=== PATIENT | female | born 1930 | race Caucasian/White ===

== ENCOUNTER 2016-04-25 18:52 | Emergency (ER) | payer MEDICARE, BC ==
--- NOTE | 2016-04-25 19:54 | UC ---
General HPI - HPI Summary HPI Summary: food stuck behind tongue. She was eating a ham sandwich tonight when she felt a long string of fat get stuck in back of throat. She reached in and grabbed what she could, it was painful, and she pulled out some fat. Still feels like some is in there behind tongue. Voice is normal. Able to swallow saliva and fluids without difficulty. No coughing or wheezing. No pain. - History of Current Complaint Chief Complaint: UCForeignBody Stated Complaint: FOOD STUCK IN THROAT Time Seen by Provider: 04/25/16 19:17 Hx Obtained From: Patient Onset/Duration: Sudden Onset, Lasting Hours - 2 Timing: Constant Onset Severity: Mild Current Severity: Mild Associated Signs & Symptoms: Negative: Vomiting - Allergy/Home Medications Allergies/Adverse Reactions: Allergies Allergy/AdvReac Type Severity Reaction Status Date / Time No Known Allergies Allergy Verified 04/25/16 19:28 Home Medications: Home Medications NK [No Home Medications Reported] 04/25/16 [History Confirmed 04/25/16] PMH/Surg Hx/FS Hx/Imm Hx Previously Healthy: Yes Cancer History Of: Reports: Breast Cancer - 2008 - Surgical History Surgical History: Yes Surgery Procedure, Year, and Place: BREAST CANCER, LEFT LUMPECTOMY - Family History Known Family History: Negative: Respiratory Disease - Social History Occupation: Retired Lives: With Family Alcohol Use: None Substance Use Type: None Smoking Status (MU): Never Smoked Tobacco Review of Systems Constitutional: Negative Skin: Negative Eyes: Negative ENT: Other - sensation of food particle in left vallecular area Respiratory: Negative Cardiovascular: Negative Gastrointestinal: Negative Genitourinary: Negative Motor: Negative Neurovascular: Negative Musculoskeletal: Negative Neurological: Negative Psychological: Negative All Other Systems Reviewed And Are Negative: Yes Physical Exam Triage Information Reviewed: Yes Appearance: Well-Appearing, No Pain Distress, Well-Nourished Vital Signs: Initial Vital Signs Temp 98.5 F 04/25/16 19:23 Pulse 77 04/25/16 19:23 Resp 18 04/25/16 19:23 BP 169/85 04/25/16 19:23 Pulse Ox 97 04/25/16 19:23 Vital Signs Reviewed: Yes Eye Exam: Normal ENT: Positive: Pharynx normal, Other: - I can't see any foreign object when I look directly with light and tongue blade. She is able to speak normally, has no resp distress, is swallowing her saliva. Able to eat crackers and drink juice. As time went on, she felt like the object was less noticeable. Still there, but not as irritating.. Negative: Nasal drainage, Tonsillar swelling, Tonsillar exudate, Trismus, Muffled/hoarse voice Neck exam: Normal Neck: Positive: Supple, Nontender, No Lymphadenopathy Respiratory Exam: Normal Respiratory: Positive: Lungs clear Cardiovascular Exam: Normal Musculoskeletal Exam: Normal Neurological Exam: Normal Psychological Exam: Normal Skin Exam: Normal Course/Dx - Course Course Of Treatment: will try to drink/eat various textures, gargle. if still irritated in AM, will call Dr. Araujo. if worsening tonight, to ER - Differential Dx - Multi-Symptom Provider Diagnoses: food in vallecula Discharge - Discharge Plan Condition: Stable Disposition: HOME Patient Education Materials: Dysphagia (ED) Referrals: Horace Araujo MD [Medical Doctor] - No Primary Care Phys,NOPCP [Primary Care Provider] - Additional Instructions: You probably have a bit of food stuck in the vallecula, which is a pocket of tissue behind the tongue. This usually will work itself out. Gargling, eating bananas or bread or other textured foods may help. If it is getting worse, particularly if you can't swallow your saliva, your voice is hoarse, or it is making you choke, then you should go immediately to the ER. If you wake up tomorrow and it still feels like something is stuck in there, call the ENT doctor. They can look down with a lighted tube and examine the vallecula directly and can remove anything stuck down there. Sometimes there is nothing stuck, but there is a scratch or tear the feels like an object. That will heal itself.
[2016-04-25 20:10] VITALS: BP 131/74
== END 2016-04-25 20:00 | disposition home or self-care (01) ==
LOC: UCEAST 18:52
DX: T18.120A Food in esophagus causing compression of trachea, initial encounter (principal); X58.XXXA Exposure to other specified factors, initial encounter; Y93.89 Activity, other specified; Y92.9 Unspecified place or not applicable
CPT/HCPCS: 99212; G0463

== ENCOUNTER 2017-04-14 10:14 | Day surgery (SDC) | payer MEDICARE, BC ==
[~2017-04-14 10:14] MED LIST: Acetaminophen TAB* 325 MG PO PRN; Buffered Lidocaine 0.9% SYRIN* 5 ML/SYR SYRINGE INTRADERM ONE
[2017-04-14] MEDS ORDERED: Midazolam* 1 MG/ML 2 ML VIAL (2 MG) ONE (11:27)
[2017-04-14] MEDS ORDERED: Lidocaine 1% MPF* 2 ML VIAL ONE (11:45)
[2017-04-14] MEDS ORDERED: acetaZOLAMIDE TAB* 250 MG ONE (11:45)
[2017-04-14] MEDS ORDERED: Neomycin/Polymy/Dex OPHTH.OIN* 3.5 GM ONE (11:45)
[2017-04-14] MEDS ORDERED: Tropicamide 1% OPTH.SOL* BTL ONE (11:45)
[2017-04-14] MEDS ORDERED: Povidone Iodine 5% OPTH* 30 ML BTL ONE (11:45)
[2017-04-14] MEDS ORDERED: Ketorolac 0.5% OPHTH (NF) 0.5 % 5 ML BTL ONE (11:45)
[2017-04-14] MEDS ORDERED: Phenylephrine 2.5% OPTH.SOL* 2 ML BTL ONE (11:45)
[2017-04-14] MEDS ORDERED: Tetracaine 0.5% OPTH.SOL 4 ML* 1 DROP BTL ONE (11:45)
[2017-04-14] MEDS ORDERED: Cyclopentolate 1% OPTH.SOL* 2 ML BTL ONE (11:45)
[2017-04-14] MEDS ORDERED: fentaNYL* 50 MCG/ML 2 ML VIAL (100 MCG VIAL) ONE (12:05)
[2017-04-14 12:36] VITALS: BP 142/83
--- NOTE | 2017-04-15 11:25 | OP ---
DATE OF OPERATION: 04/14/17 - [facility] DATE OF : 32 SURGEON: Poncho Ray MD ANESTHESIA: Monitored anesthesia care. PRE-OP DIAGNOSIS: Cataract, right eye. POST-OP DIAGNOSIS: Cataract, right eye. OPERATIVE PROCEDURE: Extracapsular cataract extraction of the right eye with intraocular lens implant. IMPLANTS: SN60WF 23.0 diopter lens to the right eye. COMPLICATIONS: None. DESCRIPTION OF PROCEDURE: The patient was given phenylephrine 2.5% and cyclopentolate 1% eyedrops to the operative eye in the preoperative area. The patient was brought to the operating room where a time-out was taken to identify the correct patient, site and side of surgery. The patient's right eye was prepped and draped in usual sterile fashion with 5% Betadine. A second timeout was taken to verify the correct patient, site and side of surgery, and correct lens selection. A lid speculum was placed in the right eye. A 1-mm paracentesis blade was used to make a clear corneal incision in the superotemporal position. Preservative-free 1% lidocaine was injected into the anterior chamber. DisCoVisc was then injected into the anterior chamber. A 2.75 -mm keratome blade was used to make a triplanar incision in the inferotemporal position. A cystotome initiated a capsulorrhexis, which was completed with Utrata forceps in a continuous and curvilinear manner. Hydrodissection of the lens was performed with BSS on a cannula. The lens could be spun in the capsular bag. The phacoemulsification handpiece was used with divide-and- conquer technique to remove the nucleus in its entirety with 23.10 CDE. The I/ A handpiece then removed the residual cortical lens material. DisCoVisc was injected to inflate the capsular bag. The planned SN60WF 23.0 diopter lens was then injected in the capsular bag. The residual DisCoVisc was removed from the eye with the I/A handpiece. The corneal incisions were hydrated and no leaks occurred at physiologic pressure around 20 mmHg per palpation. The lid speculum was removed and drapes removed. Maxitrol ointment was placed to the surface of the operative eye. An adhesive patch and shield was placed on the operative eye. The patient was taken to the postoperative area in stable condition. [id number] #: [id number] MTDD
== END 2017-04-14 12:40 | disposition home or self-care (01) ==
LOC: OREAST 10:14
PROVIDERS: ATTEND Student in an Organized Health Care Education/Training Program
DX: H25.11 Age-related nuclear cataract, right eye (principal); H35.3111 Nonexudative age-related macular degeneration, right eye, early dry stage; H35.3122 Nonexudative age-related macular degeneration, left eye, intermediate dry stage; Z85.3 Personal history of malignant neoplasm of breast
CPT/HCPCS: A9270-GY; J2250; J3010; V2632

== ENCOUNTER → 2017-04-21 07:06 | Day surgery (SDC) | payer MEDICARE, BC ==
[~2017-04-21 07:06] MED LIST changes: +Cyclopentolate 1% OPTH.SOL* 2 ML BTL ONE; +Ketorolac 0.5% OPHTH (NF) 0.5 % 5 ML BTL ONE; +Lidocaine 1% MPF* 2 ML VIAL ONE; +Midazolam* 1 MG/ML 2 ML VIAL (2 MG) ONE; +Neomycin/Polymy/Dex OPHTH.OIN* 3.5 GM ONE; +Phenylephrine 2.5% OPTH.SOL* 2 ML BTL ONE; +Povidone Iodine 5% OPTH* 30 ML BTL ONE; +Tetracaine 0.5% OPTH.SOL 4 ML* 1 DROP BTL ONE; +Tropicamide 1% OPTH.SOL* BTL ONE; +acetaZOLAMIDE TAB* 250 MG ONE
[2017-04-21 08:59] VITALS: BP 131/82
--- NOTE | 2017-04-21 21:15 | OP ---
DATE OF OPERATION: 04/21/17 - [facility] DATE OF : 32 SURGEON: Poncho Ray MD ANESTHESIA: Monitored anesthesia care. PRE-OP DIAGNOSIS: Cataract, left eye. POST-OP DIAGNOSIS: Cataract, left eye. OPERATIVE PROCEDURE: Extracapsular cataract extraction of the left eye with intraocular lens implant. IMPLANTS: SN60WF 24.0 diopter lens to the left eye. COMPLICATIONS: None. DESCRIPTION OF PROCEDURE: The patient was given phenylephrine 2.5% and cyclopentolate 1% eye drops to the operative eye in the preoperative area. The patient was brought to the operating room where a time-out was taken to identify the correct patient, site and side of surgery. The patient's left eye was prepped and draped in the usual sterile fashion with 5% Betadine. A second time-out was taken to verify the correct patient, site and side of surgery, and correct lens selection. A lid speculum was placed to the left eye. A 1-mm paracentesis blade was used to make a clear corneal incision in the inferotemporal position. Preservative-free 1% lidocaine was injected into the anterior chamber. DisCoVisc was then injected into the anterior chamber. A 2.75 mm keratome blade was used to make a triplanar incision at the superotemporal position. A cystotome initiated a capsulorrhexis which was completed with Utrata forceps in a continuous and curvilinear manner. Hydrodissection of the lens was performed with BSS on a cannula. The lens could be spun in the capsular bag. The phacoemulsification handpiece was used with a [id number]-[id number]-gkmammi technique to remove the nucleus in its entirety with 19.69 CDE. The I/A handpiece then removed the residual cortical lens material. DisCoVisc was injected to inflate the capsular bag. The planned SN60WF 24.0 diopter lens was injected into the capsular bag. The residual DisCoVisc was removed from the eye with the I/A handpiece. The corneal incisions were hydrated and no leaks occurred at physiologic pressure around 20 mmHg per palpation. The lid speculum was removed and drapes removed. Maxitrol ointment was placed to the surface of the operative eye. An adhesive patch and shield was then placed on the operative eye. The patient was taken to the postoperative area in stable condition. [id number] #: [id number] MTDD
== END | disposition home or self-care (01) ==
LOC: OREAST 07:06
PROVIDERS: ATTEND Student in an Organized Health Care Education/Training Program
DX: H25.12 Age-related nuclear cataract, left eye (principal); H35.3122 Nonexudative age-related macular degeneration, left eye, intermediate dry stage; H35.3111 Nonexudative age-related macular degeneration, right eye, early dry stage; Z85.3 Personal history of malignant neoplasm of breast; R05 Cough; R42 Dizziness and giddiness; F40.240 Claustrophobia
CPT/HCPCS: A9270-GY; J2250; V2632

== ENCOUNTER 2017-04-22 03:55 | Emergency (ER) | payer MEDICARE, BC ==
--- NOTE | 2017-04-22 04:36 | ED ---
Michela Grande Thomas, scribed for Brenda Maher MD on 04/22/17 at 0433 . Abdominal Pain/Female - HPI Summary HPI Summary: The patient is an 86 year old female brought in by ambulance complaining of an episode of abdominal pain that began today at 02:30 and spontaneously relieved en route to [facility]. She was nauseous during this episode. The pain is concentrated to the right side and lower abdomen. She denies pain in the ED. Her last BM was yesterday morning and it was normal. - History of Current Complaint Chief Complaint: EDAbdPain Stated Complaint: ABD PAIN Time Seen by Provider: 04/22/17 03:55 Hx Obtained From: Patient Onset/Duration: Lasting Hours, Resolved Timing: Constant Severity Initially: Moderate Severity Currently: None Pain Intensity: 0 Pain Scale Used: 0-10 Numeric Location: Other - Right side, lower Aggravating Factor(s): Nothing Alleviating Factor(s): Spontaneous Resolution Associated Signs and Symptoms: Positive: Nausea. Negative: Fever Allergies/Adverse Reactions: Allergies Allergy/AdvReac Type Severity Reaction Status Date / Time No Known Allergies Allergy Verified 04/21/17 07:12 PMH/Surg Hx/FS Hx/Imm Hx Cardiovascular History: Denies: Other Cardiovascular Problems/Disorders Respiratory History: Denies: Other Respiratory Problems/Disorders GI History: Denies: Other GI Disorders History: Reports: Other Problems/Disorders - bladder leakage Musculoskeletal History: Reports: Hx Arthritis - bilateral knees, Hx Bursitis - right shoulder pain Denies: Other Musculoskeletal History Sensory History: Reports: Hx Cataracts - Bilateral, Hx Contacts or Glasses - Glasses Denies: Hx Hearing Aid Opthamlomology History: Reports: Hx Cataracts - Bilateral, Hx Contacts or Glasses - Glasses Neurological History: Reports: Other Neuro Impairments/Disorders - vertigo- gets frequently - Cancer History Hx Chemotherapy: No - Radiation therapy Hx Radiation Therapy: Yes - Surgical History Surgery Procedure, Year, and Place: BREAST CANCER, LEFT LUMPECTOMY 2009. Teeth extraction Hx Anesthesia Reactions: No Infectious Disease History: No Infectious Disease History: Denies: Traveled Outside the [place] in Last 30 Days - Family History Known Family History: Negative: Respiratory Disease - Social History Alcohol Use: None Substance Use Type: Reports: None Smoking Status (MU): Never Smoked Tobacco Review of Systems Negative: Fever Positive: Abdominal Pain, Nausea All Other Systems Reviewed And Are Negative: Yes Physical Exam - Summary Physical Exam Summary: VITAL SIGNS: Reviewed. GENERAL: Patient is a well-developed and nourished MALE who is lying comfortable in the stretcher. Patient is not in any acute respiratory distress. HEAD AND FACE: No signs of trauma. No ecchymosis, hematomas or skull depressions. No sinus tenderness. EYES: PERRLA, EOMI x 2, No injected conjunctiva, no nystagmus. EARS: Hearing grossly intact. Ear canals and tympanic membranes are within normal limits. MOUTH: Oropharynx within normal limits. NECK: Supple, trachea is midline, no adenopathy, no JVD, no carotid bruit, no c- spine tenderness, neck with full ROM. CHEST: Symmetric, no tenderness at palpation LUNGS: Clear to auscultation bilaterally. No wheezing or crackles. CVS: Regular rate and rhythm, S1 and S2 present, no murmurs or gallops appreciated. ABDOMEN: Soft, non-tender. Mild distention. No rebound no guarding, and no masses palpated. Bowel sounds are normal. EXTREMITIES: FROM in all major joints, no edema, no cyanosis or clubbing. NEURO: Alert and oriented x 3. No acute neurological deficits. Speech is normal and follows commands. SKIN: Dry and warm Triage Information Reviewed: Yes Vital Signs On Initial Exam: Initial Vitals Temp Pulse Resp BP Pulse Ox 97.8 F 86 16 137/69 97 04/22/17 04:11 04/22/17 04:11 04/22/17 04:11 04/22/17 04:11 04/22/17 04:11 Vital Signs Reviewed: Yes Diagnostics - Vital Signs Vital Signs Temp Pulse Resp BP Pulse Ox 04/22/17 04:11 97.8 F 86 16 137/69 97 - Laboratory Lab Statement: Any lab studies that have been ordered have been reviewed, and results considered in the medical decision making process. Abdominal Pain Fem Course/Dx - Course Course Of Treatment: The patient is an 86 year old female brought in by ambulance complaining of an episode of abdominal pain that began today at 02:30 and spontaneously relieved en route to [facility]. She has mild distention. She is diagnosed with abdominal pain and will follow up with primary care. - Diagnoses Provider Diagnoses: Abdominal pain Discharge - Discharge Plan Condition: Stable Disposition: HOME Patient Education Materials: Abdominal Pain (ED) Referrals: Bozena Lackey MD [Primary Care Provider] - 3 Days Additional Instructions: Follow up with your primary care physician in three days. Return to the emergency department for any new or worsening symptoms. The documentation as recorded by the Michela russo Thomas accurately reflects the service I personally performed and the decisions made by me, Brenda Maher MD.
[2017-04-22 04:37] VITALS: BP 137/71
--- OUTSIDE RECORDS SUMMARY | 2017-04-22 04:59 | XMS REPORT ---
:1930 External Reference #:[id number] Author Organization [facility] Address [address] [place] [address] Phone [phone] Care Team Providers Name Role Phone Bozena Lackey Care Team Information Radio Script Writer Unavailable Bozena Lackey Primary Care Physician Unavailable Payers Type Date Identification Numbers Payment Provider Subscriber Medicare Primary Effective: Policy Number: Medicare Yefri Rice 2000 [id number] PayID: [id number] [address] [place] [address] Medigap Part B Effective: 2004 Policy Number: [place] Mdahuri Rice [id number] Health Care PayID: [id number] [address] [place] [address] Problems Date Description Provider Status Onset: 05/10/2011 Malignant neoplasm of female breast Nikole Everett M.D. Active Onset: 05/10/2011 Cellulitis Nikole Everett M.D. Active Onset: 04/24/2011 Peripheral vertigo Jamil Leonardo M.D. Active Social History Type Date Description Comments Marital Status Patient is Living Situation Patient lives alone. [facility] Cigarette Use Never Smoked Cigarettes ETOH Use Denies alcohol use Smoking Patient has never smoked Seat Belt/Car Seat Always uses a seat belt Allergies, Adverse Reactions, Alerts Date Description Reaction Status Severity Comments 04/24/2011 NKDA active Medications Medication Date Status Form Strength Qnty SIG Indications Ordering Provider No Active 07/10/ Active Unknown Medications 2017 Meclizine HCL 10/27/ Hx Tablets 12.5mg 30tabs take 1-2 tid 386.10 Lori 2013 - prn for Christy, 07/09/ dizziness Afnp-C 2017 Cephalexin 05/12/ Hx Tablets 500mg 28tabs 1 po qid for 682.8 Nikole M. 2012 - 7 days LaFace, 10/27/ M.D. 2013 Antivert 04/24/ Hx Tablets 12.5mg 30tabs 1 po tid prn Jamil Huynh 2012 - for vertigo Breiman, 05/09/ M.D. 2012 Amoxicillin 07/02/ Hx Capsules 500mg 21caps 1 po tid for 382.9 Nikole Schumacher 2011 - 7 days LaFace, 04/24/ M.D. 2012 Ciprodex 07/02/ Hx Suspension 0.3-0.1% 7.500m 4 gtts bid 380.22 Nikole Schumacher 2011 - l for 7 days, LaFace, 04/24/ left ear M.D. 2011 Antivert 10/22/ Hx Tablets 12.5mg 30tabs 1-2 PO tid Mery 2007 - prn [place]ilsdorf, 11/01/ Dizziness Afnp-C 2006 Biaxin 06/15/ Hx Tablets 500mg 20tabs 1 PO bid X10 Lori 2005 - Days Christy, 06/25/ Afnp-C 2005 Biaxin 07/27/ Hx Tablets 500mg 20tabs 1 po bid Andrew TJonel 2005 - Midura, 10/22/ M.D. 2007 Biaxin XL 03/17/ Hx 500mg 20unit Je 2005 - s Bipin, 03/26/ HEAT CURER 2005 One P.O. bid For Ten Days Albuterol 03/17/ Hx 1units 2 puffs qid Je Inhaler 2005 - prn Bipin, 07/27/ HEAT CURER 2005 Robitussin ac 03/09/ Hx 4Oz 1-2 tsp po Andrew T. 2004 - q4h prn Israel, 10/22/ cough M.D. 2007 Handicap 12/21/ Hx needed due Freda Parking 2003 - to: ankle Bala, Permit 03/09/ sprain HEAT CURER 2003 [id number] Biaxin 01/06/ Hx Tabs 500mg 20tabs 1 PO bid Phoenix AJonel 2001 - Darlow, 01/16/ M.D. 2000 Augmentin 12/24/ Hx 500mg 20unit 1 PO bid Phoenix AJonel 2001 - s Darlow, 01/03/ M.D. 2000 Duratuss GP 12/24/ Hx 20unit 1 PO Q 12 HR Phoenix A. 2000 - s prn Head Darrosa, 01/03/ Congestion MZack 2000 Tequin 04/10/ Hx 400mg 10unit 1 PO qd Andrew Avila 2000 - s Israel, 12/24/ Vandana 2000 Duratuss 04/03/ Hx 8units 1 PO bid prn Freda 2001 - Head Bala, 04/08/ Congestion HEAT CURER 2000 Vioxx 04/03/ Hx 25mg 12unit 1 PO qd Freda 2000 - s Bala, 04/10/ HEAT CURER 2000 Zithromax 03/29/ Hx 250mg 6units 2 Tabs Day 1 Mery 2000 - [place]f, 04/03/ Afnp-C 2000 1 Tab qd Days 2 Thru 5 Femara / Hx Tablets 2.5mg 30tabs take one Aron, 0000 - tablet by Doron 07/09/ mouth one 2016 time daily Augmentin / Hx Tablets 20tabs 1 po qd Unknown 0000 - 2011 Immunizations CPT Code Status Date Vaccine Lot # [id number] Given 12/22/2009 DO Not Use Split Influenza Virus Vaccine Vital Signs Date Vital Result Comment 03/26/2017 BP Systolic 132 mmHg BP Diastolic 82 mmHg Heart Rate 84 /min Body Temperature 98.4 F Respiratory Rate 16 /min Height 66 inches 5'6" Weight 157.00 lb BMI (Body Mass Index) 25.3 kg/m2 10/09/2016 BP Systolic 124 mmHg BP Diastolic 62 mmHg Heart Rate 90 /min Body Temperature 97.9 F Height 66 inches 5'6" Weight 157.38 lb BMI (Body Mass Index) 25.4 kg/m2 09/11/2016 BP Systolic 122 mmHg BP Diastolic 70 mmHg Heart Rate 78 /min Body Temperature 98.4 F Height 66 inches 5'6" Weight 158.50 lb BMI (Body Mass Index) 25.6 kg/m2 07/10/2016 BP Systolic 132 mmHg BP Diastolic 70 mmHg Heart Rate 76 /min Body Temperature 98.2 F Height 66 inches 5'6" Weight 163.00 lb BMI (Body Mass Index) 26.3 kg/m2 10/27/2012 BP Systolic 122 mmHg BP Diastolic 60 mmHg Heart Rate 76 /min Body Temperature 98.9 F Height 66 inches 5'6" Weight 156.00 lb BMI (Body Mass Index) 25.2 kg/m2 05/16/2011 BP Systolic 116 mmHg BP Diastolic 60 mmHg Heart Rate 72 /min Body Temperature 98.7 F Height 66 inches 5'6" Weight 177.00 lb BMI (Body Mass Index) 28.6 kg/m2 05/13/2011 BP Systolic 100 mmHg BP Diastolic 68 mmHg Heart Rate 84 /min Body Temperature 98.1 F Height 66 inches 5'6" Weight 177.00 lb BMI (Body Mass Index) 28.6 kg/m2 05/10/2011 BP Systolic 122 mmHg BP Diastolic 62 mmHg Heart Rate 68 /min Body Temperature 97.6 F Height 66 inches 5'6" Weight 179.00 lb BMI (Body Mass Index) 28.9 kg/m2 04/24/2011 BP Systolic 138 mmHg BP Diastolic 72 mmHg Heart Rate 96 /min Height 66 inches 5'6" Weight 181.00 lb BMI (Body Mass Index) 29.2 kg/m2 07/02/2010 BP Systolic 124 mmHg BP Diastolic 70 mmHg Heart Rate 78 /min Body Temperature 98.0 F Respiratory Rate 20 /min Height 66 inches 5'6" Weight 182.00 lb BMI (Body Mass Index) 29.4 kg/m2 01/17/2010 BP Systolic 130 mmHg BP Diastolic 90 mmHg Heart Rate 72 /min Body Temperature 98.4 F Respiratory Rate 15 /min Height 66 inches 5'6" Weight 180.00 lb BMI (Body Mass Index) 29.0 kg/m2 02/24/2008 BP Systolic 110 mmHg BP Diastolic 60 mmHg Heart Rate 80 /min Body Temperature 97.9 F Weight 180.00 lb 10/22/2006 BP Systolic 126 mmHg BP Diastolic 84 mmHg Body Temperature 98.2 F 03/24/2006 BP Systolic 110 mmHg BP Diastolic 66 mmHg Heart Rate 84 /min Body Temperature 99.2 F Weight 187.00 lb 12/11/2005 BP Systolic 136 mmHg BP Diastolic 70 mmHg Heart Rate 72 /min Body Temperature 99.1 F Weight 191.00 lb 06/15/2005 Heart Rate 88 /min Body Temperature 98.4 F Weight 203.00 lb 07/27/2004 BP Systolic 112 mmHg BP Diastolic 74 mmHg Heart Rate 80 /min Body Temperature 97.0 F Weight 190.00 lb 03/26/2004 BP Systolic 148 mmHg BP Diastolic 90 mmHg Heart Rate 80 /min Body Temperature 97.6 F Weight 189.00 lb 03/17/2004 BP Systolic 124 mmHg BP Diastolic 64 mmHg Heart Rate 80 /min Body Temperature 99.0 F Weight 194.00 lb 03/09/2004 BP Systolic 130 mmHg BP Diastolic 80 mmHg Heart Rate 100 /min Body Temperature 100.8 F 12/01/2003 BP Systolic 138 mmHg BP Diastolic 80 mmHg Heart Rate 78 /min 12/24/2000 BP Systolic 120 mmHg BP Diastolic 80 mmHg Body Temperature 99.5 F Respiratory Rate 18 /min Weight 174.00 lb 04/10/2000 BP Systolic 124 mmHg BP Diastolic 82 mmHg Heart Rate 80 /min Body Temperature 97.6 F Weight 166.00 lb 04/03/2000 Body Temperature 97.7 F Weight 177.00 lb 03/29/2000 BP Systolic 118 mmHg BP Diastolic 64 mmHg Heart Rate 78 /min Body Temperature 98.3 F Weight 176.00 lb Results Test Date Test Result H/L Range Note CBC Auto Diff 02/19/2017 White Blood Count 5.8 10^3/uL 3.5-10.8 Red Blood Count 4.88 10^6/uL 4.0-5.4 Hemoglobin 14.1 g/dL 12.0-16.0 Hematocrit 43 % 35-47 Mean Corpuscular Volume 88 fL 80-97 Mean Corpuscular Hemoglobin 29 pg 27-31 Mean Corpuscular HGB Conc 33 g/dL 31-36 Red Cell Distribution Width 15 % 10.5-15 Platelet Count 252 10^3/uL 150-450 Mean Platelet Volume 8 um3 7.4-10.4 Abs Neutrophils 3.7 10^3/uL 1.5-7.7 Abs Lymphocytes 1.5 10^3/uL 1.0-4.8 Abs Monocytes 0.4 10^3/uL 0-0.8 Abs Eosinophils 0.1 10^3/uL 0-0.6 Abs Basophils 0.1 10^3/uL 0-0.2 Abs Nucleated RBC 0.01 10^3/uL Granulocyte % 62.6 % 38-83 Lymphocyte % 25.7 % 25-47 Monocyte % 7.4 % 1-9 Eosinophil % 1.8 % 0-6 Basophil % 2.5 % High 0-2 Nucleated Red Blood Cells % 0.1 Comp Metabolic Panel 02/19/2017 Sodium 138 mmol/L 133-145 Potassium 4.2 mmol/L 3.5-5.0 Chloride 104 mmol/L 101-111 Co2 Carbon Dioxide 31 mmol/L 22-32 Anion Gap 3 mmol/L 2-11 Glucose 74 mg/dL 70-100 Blood Urea Nitrogen 15 mg/dL 6-24 Creatinine 0.83 mg/dL 0.51-0.95 BUN/Creatinine Ratio 18.1 8-20 Calcium 10.0 mg/dL 8.6-10.3 Total Protein 6.7 g/dL 6.4-8.9 Albumin 4.0 g/dL 3.2-5.2 Globulin 2.7 g/dL 2-4 Albumin/Globulin Ratio 1.5 1-3 Total Bilirubin 0.50 mg/dL 0.2-1.0 Alkaline Phosphatase 76 U/L 34-104 Alt 12 U/L 7-52 Ast 17 U/L 13-39 Egfr Non- 65.3 >60 Egfr 84.0 >60 1 Laboratory test finding 02/19/2017 Vitamin D Total 37.9 ng/mL 20-50 25(Oh) Lyme AB/Western Blot 10/09/2016 Lyme IgG/IgM Ab <0.91 ISR 0.00-0.90 2 , 3 Reflex Lyme Disease Ab, Quant, IgM <0.80 index 0.00-0.79 2, 4 Ehrlichiosis Panel 10/09/2016 E. chaffeensis (HME) IgG Negative Neg:<1 :64 2 Titer E. chaffeensis (HME) IgM Titer Negative Neg:<1:20 2, 5 Hge IgG Titer Negative Neg:<1:64 2, 6 Hge IgM Titer Negative Neg:<1:20 2, 7 Complete Blood Count 10/09/2016 WBC 4.7 x10^3/UL 3.6-9.6 RBC 5.22 x10^6/UL 3.90-5.70 HGB 15.3 g/dL 12.1-17.2 HCT 46 % 36-50 MCV 88.0 fL 82.2-97.4 MCH 29.2 pg 27.6-33.3 MCHC 33.3 g/dL 33.0-35.5 RDW 15.3 % High 11.6-13.7 PLT 267 x10^3/UL 150-400 MPV 7.2 fL Low 7.4-10.4 Gran # 3.2 x10^3/UL 1.5-7.2 Lymph# 1.3 x10^3/UL 0.7-4.9 Oldham# 0.2 x10^3/UL 0.1-0.9 Gran % 65.9 % 42.2-75.2 Lymph % 29.0 % 20.5-51.1 Oldham% 5.1 % 1.7-9.3 Comprehensive Metabolic Prof 10/09/2016 Sodium 140 mEq/L 134-149 Potassium 4.4 mEq/L 3.6-5.5 Chloride 97 mEq/L 94-112 Carbon Dioxide 26 mEq/L 21-32 Glucose 98 mg/dL 70-105 BUN 17 mg/dL 6-26 Creatinine 0.8 mg/dL 0.6-1.4 BUN/Creat Ratio 21.3 CALC 8.0-36.0 Calcium 9.7 mg/dL 8.6-10.2 Total Protein 6.5 g/dL 6.4-8.3 Albumin 4.2 g/dL 3.8-5.5 Globulin 2.3 g/dL 2.0-4.8 A/G Ratio 1.8 CALC 0.6-2.3 Alk. Phosphatase 89 U/L 30-110 Alt (SGPT) 19 U/L 7-35 Ast (Sgot) 22 U/L 5-34 Total Bilirubin 0.5 mg/dL 0.2-1.3 GFR Non- >60 ml/min/1.73m^ >=60 GFR >60 ml/min/1.73m^ >=60 Laboratory test finding 10/09/2016 Magnesium, Serum 2.1 mEq/L 1.2-2.1 TSH 1.78 mIU/L 0.50-6.00 Free T4 1.05 ng/dL 0.75-1.54 Laboratory test 07/10/2016 Antinuclear Antibodies, Negative 8, 9 finding Ifa Rheumatoid Arthritis 07/10/2016 Ra Latex Turbid. <10.0 IU/mL 0.0-13.9 8 Factor ([facility]) Laboratory test 07/10/2016 Sedimentation Rate 14mm finding CBC With Electronic 03/25/2008 White Blood Count 6.5 CUMM 4.8-10.8 10 Diff Red Cell Count 4.81 CUMM 4.2-5.4 10 Hemoglobin 14.9 g/dL 12.0-16.0 10 Hematocrit 44 % 35-47 10 Mean Corpuscular Volume 91 um3 79-97 10 Mean Corpuscular Hemoglob 31 pg 27-31 10 Mean Corpuscular HGB Cone 34 g/dL 32-36 10 Redcell Distribution WDTH 14 % 10.5-15 10 Platelet Count 221 CUMM 150-450 10 Mean Platelet Volume 10.1 um3 7.4-10.4 10 Gran % 57.8 % 38-83 10 Lymph % 33.9 % 25-47 10 Mononuclear % 6.1 % 1-9 10 Eosinophil % 1.8 % 0-6 10 Basophil % 0.4 % 0-2 10 Abs Lymphs 2.2 1.0-4.8 10 Abs Mononuclear 0.4 0-0.8 10 Absolute Neutrophil Count 3.8 1.5-7.7 10 Abs Eosinophils 0.1 0-0.6 10 Abs Basophils 0 0-0.2 10 Basic Metabolic Panel 03/25/2008 Sodium 137 mmol/L 135-145 10 Potassium 4.5 mmol/L 3.5-5.0 10 Chloride 102 mmol/L 101-111 10 Co2 (Carbon Dioxide) 27.0 mmol/L 22-32 10 Anion Gap 8.0 mmol/L 2-11 10, 11 Glucose 93 mg/dL 70-100 10, 12 BUN 14 mg/dL 6-24 10 Creatinine 0.80 mg/dL 0.50-1.40 10 One Over Creatinine 1.20 10 BUN/Creatinine Ratio 17.5 8-20 10 Calcium 10.0 mg/dL High 8.1-9.9 10, 13 Creatinine 03/09/2008 Creatinine 0.80 mg/dL 0.50-1.40 One Over Creatinine 1.20 Cytology Non [employer] 03/04/2008 Cytology Non [employer] <SEE 14 NOTE> Complete Blood 10/22/2006 WBC 8.1 x10\\S\\3/uL 3.6-9.6 15 Count Gran# 3.8 x10\\S\\3/uL 1.5-7.2 15 Gran% 46.4 % 42.2-75.2 15 HCT 43 % 36-50 15 HGB 14.6 g/dL 12.1-17.2 15 Lymph# 3.6 x10\\S\\3/uL 0.7-4.9 15 Lymph% 43.9 % 20.5-51.1 15 MCH 32.1 pg 27.6-33.3 15 MCV 94.6 fL 82.2-97.4 15 MCHC 33.9 g/dL 33.0-35.5 15 Mo# 0.8 x10\\S\\3/uL 0.1-0.9 15 Mo% 9.7 % High 1.7-9.3 15, 16 MPV 8.7 fL 7.4-10.4 15 PLT 279 x10\\S\\3/uL 150-400 15 RBC 4.56 x10\\S\\6/uL 3.90-5.70 15 RDW 13.7 % 11.6-13.7 15 Laboratory test finding 10/22/2006 Free T4 0.94 ng/dL 0.75-1.54 15 TSH 4.44 mIU/L 0.50-6.00 15 Comprehensive Metabolic Prof 10/22/2006 Albumin 4.0 g/dL 3.8-5.5 15 Alk. Phos. 91 U/L 30-110 15 Alt (SGPT) 29 U/L 7-35 15 Ast (Sgot) 28 U/L 5-34 15 BUN 20 mg/dL 6-26 15 Calcium 10.6 mg/dL High 8.6-10.2 15, 17 Chloride 101 mEq/L 94-112 15 Creatinine 0.9 mg/dL 0.6-1.4 15 Carbon Dioxide 27 mEq/L 21-32 15 Glucose 118 mg/dL High 70-105 15 Sodium 137 mEq/L 134-149 15 Total Bilirubin 0.6 mg/dL 0.2-1.3 15 Total Protein 7.9 g/dL 6.3-8.1 15 Potassium 4.1 mEq/L 3.6-5.5 15 Globulin 3.9 g/dL 2.0-4.8 15 A/G Ratio 1.0 Calc 0.6-2.2 15 BUN/Creat Ratio 21.6 Calc 8.0-36.0 15 CBC Electronic (Fma) 03/17/2004 WBC 9.5 3.6-9.6 Lymphocytes 22.5 % 20.5 - 51.1 Monocytes 5.7 % 1.7-9.3 Granulocytes 71.8 % 42.2 - 75.2 Lymphocytes 2.1 10^3/uL 0.7 - 4.9 Monocytes 0.5 10^3/uL 0.1 - 0.9 Granulocytes 6.8 10^3/uL 1.5 - 7.2 RBC 4.33 3.90-5.70 Hemoglobin (Fma/CMC/CTX) 13.8 g/dL 12.1 - 17.2 Hematocrit (Fma/CMC/CTX) 40.0 % 36.1 - 50.3 Mean Corpuscular Vol 92.5 82.2-97.4 Mean Corpuscular Hemaglobin 31.8 27.6-33.3 Mean Corpuscular Hemo Concen 34.4 33.0-35.5 RDW 13.1 11.6-13.7 Platelets 327. 10^3/ul 150-400 Mean Platelet Volume 7.5 7.4-10.4 1 Because ethnic data is not always readily available, this report includes an eGFR for both -Americans and non- Americans. The National Kidney Disease Education Program (NKDEP) does not endorse the use of the MDRD equation for patients that are not between the ages of 18 and 70, are , have extremes of body size, muscle mass, or nutritional status, or are non- or non-. According to the National Kidney Foundation, irrespective of diagnosis, the stage of the disease is based on the level of kidney function: Stage Description GFR(mL/min/1.73 m(2)) 1 Kidney damage with normal or decreased GFR 90 2 Kidney damage with mild decrease in GFR 60-89 3 Moderate decrease in GFR 30-59 4 Severe decrease in GFR 15-29 5 Kidney failure <15 (or dialysis) 2 1sst 3 Negative <0.91 Equivocal 0.91 - 1.09 Positive >1.09 4 Negative <0.80 Equivocal 0.80 - 1.19 Positive >1.19 IgM levels may peak at 3-6 weeks post infection, then gradually decline. 5 IgG titers if 1:64 or greater indicate exposure or acute and convalescent samples showing a four-fold increase, and/or the presence of IgM indicate recent or current infection. 6 HGE IgG levels are detectable 7 to 10 days post infection and persist approximately one year. 7 Due to a reagent backorder, this test was performed using a different assay. The reference interval for this alternate assay is: Negative <1:64 Positive 1:64 or greater IgM levels usually rise 3 to 5 days post infection and fall to normal levels in approximately 30 to 60 days. 8 1 sst 9 Negative <1:80 Borderline 1:80 Positive >1:80 10 ASA 03/31/08 11 Anion gap measurement may be of limited value in the presence of any alkalosis, especially in a combined acid base disorder. . 12 Note change in reference range as of 10/29/07. The change was based on recommendations from the [place] [employer]. 13 Please note change in reference range effective 07 . 14 ---- RUN DATE: 03/15/08 [facility] NMI LIVE PAGE 1 RUN TIME: 1537 Specimen Inquiry RUN USER: INTERFACE -- Name: MADHURI RICE Status: REG REF Re03/04/08 Age/Sex: 77/F Unit#: [id number] Location: [facility] : 31 -- Specimen: [id number] SOUT Spec Date: 03/04/[address]: Tab frank MD Spec Type: CYTOLOGY Received: 03/07/08 Copies to: Phoenix felton MD SOURCE FINE NEEDLE ASPIRATION left breast PATIENT INFORMATION ACTUAL COLLECTION DATE: 03/04/08 PATIENT HISTORY: left breast lump GROSS DESCRIPTION 4 alcohol fixed slide(s) received from clinician with moderate to abundant material and Needle rinse in Cytolyt solution for cell block. 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 ADDENDUM Addendum #1 Entered: 03/08/087205 The following immunohistochemical stains were performed with appropriate controls on the cell block material: ER: Positive, 2-3+, 90% of malignant cells. FL: Positive, 1-2+, 5% of malignant cells. Fluorescent in situ hybridization studies for Her2/Arturo Gene amplification are pending and will be reported in an addendum. -- DEPARTMENT OF PATHOLOGY, [address] [place] [address] [facility] Permit #[id number] Jm Duong M.D. Director Melanie Becker M.D. Cat Scan Tech Dir jos el -- -- RUN DATE: 03/15/08 [facility] NMI LIVE PAGE 2 RUN TIME: 1537 Specimen Inquiry RUN USER: INTERFACE -- Name: MADHURI RICE Status: REG REF Re03/04/08 Age/Sex: 77/F Unit#: [id number] Location: [facility] : 31 -- -- CONTINUED -- ADDENDUM (Continued) Addendum Review (signature on file) JM DUONG MD 03/08/08 -- Addendum #2 Entered: 03/15/08-1307 Her2/Arturo by FISH has been performed at [facility] in [place], [place]. The testing reveals: Patient Name: MADHURI RICE Collection Date: 03/04/2008 Ordering Physician: Jm Duong M.D. Received Date: 03/09/2008 Treating Physician: Shannon Report Date: 03/12/2008 Ordering Facility: [facility] Ref #: [id number] Specimen ID #: [id number] Date of ,Sex: 1930, F Fluorescence in situ Hybridization (FISH) Report HER-2/arturo Result: NOT AMPLIFIED The Her-2/yareli 17 ratio=0.9 Specimen Site/Type: Breast FNA Tissue Specimen Fixative Type: Formalin Indication for Study: Evaluate for Amplification of the HER-2 Gene The average of Her-2/arturo copies per cell: 1.7 The average of cen17 copies per cell: 1.9 The cutoff point for assessing Her-2/arturo gene amplification is a Her-2/cen17 ratio greater than 2.2. The specimen is considered not amplified for the Her-2/arturo gene. A total of 20 tumor cells from this patient's tissue were analyzed by two technologists and were sufficient for analysis. FISH was performed using the [employer] HER-2 DNA Probe Kit. -- DEPARTMENT OF PATHOLOGY, [address] [place] [address] [facility] Permit #[id number] Jm Duong M.D. Director Melanie Becker M.D. Cat Scan Tech jose l -- -- RUN DATE: 03/15/08 [facility] NMI LIVE PAGE 3 RUN TIME: 1537 Specimen Inquiry RUN USER: INTERFACE -- Name: KRYSTALMADHURI Status: REG REF Re03/04/08 Age/Sex: 77/F Unit#: [id number] Location: [facility] : 31 -- -- CONTINUED -- ADDENDUM (Continued) Probe Name Detection Parameters Result ISCN [employer] amplification of the HER-2 gene NOT AMPLIFIED nuc frederick(D17Z1,HER-2)x2 (Original [facility] report available upon request by calling Pathology at [phone]). Addendum Review (signature on file) JM DUONG MD 03/15/08 -- Initial evaluation performed by Jade MURRAY([facility]) 03/07/08 Final Interpretation electronically signed by: JM DUONG MD 03/07/08 09 47 -- -- DEPARTMENT OF PATHOLOGY, [address] [place] [address] [facility] Permit #[id number] Jm Duong M.D. Director Melanie Becker M.D. Cat Scan Tech Dir jose l -- 15 SPECIMEN MARKEDLY LIPEMIC 16 SPECIMEN RAN 24 HOURS AFTER DRAW. 17 RESULT VERIFIED BY REPEAT ANALYSIS Procedures Date CPT Code Description Status Comment 02/17/2017 Mammogram Completed 07/10/2016 Colonoscopy Completed never 01/09/2016 Mammogram Completed 03/10/2011 Bone Mineral Density Test Completed 02/26/2008 Mammogram Completed 03/17/2004 40286 Nebulizer Treatment Completed Encounters Type Date Location Provider CPT E/M Dx Office Visit 10/09/2016 11:00a [facility] Office Roxana Girard [facility] [address]10 M25.562 M25.561 R26.2 Office Visit 09/11/2016 10:00a [facility] Office Roxana Girard [facility] 77045 M25.562 M25.561 R26.2 Office Visit 07/10/2016 1:00p [facility] Office Roxana Girard [facility] 83406 M25.562 M25.561 R26.2 Office Visit 10/27/2012 5:30p Main Office Lori HarrisonLuis 60481 386.10 Office Visit 05/16/2011 9:40a Main Office Nikole Everett M.D. 98661 682.8 Office Visit 05/13/2011 9:40a [facility] Office Nikole Everett M.D. 37219 682.8 Office Visit 05/10/2011 8:40a Main Office Nikole Everett M.D. 23123 682.8 174.9 Office Visit 04/24/2011 1:10p Main Office Jamil Leonardo M.D. 66171 386.10 Office Visit 07/02/2010 10:40a [facility] Office Nikole Everett M.D. 58996 382.9 380.22 Office Visit 01/17/2010 9:45a [facility] Office Freda Mckenna [facility] 92951 465.9 Office Visit 02/24/2008 9:00a Main Office Freda Mckenna [facility] 22313 611.72 Office Visit 10/22/2006 8:15p Main Office Mery Olivo michael 19329 078.81 780.79 Office Visit 03/24/2006 2:10p Main Office Andrew Wood M.D. 98806 465.9 461.9 466.0 Office Visit 12/11/2005 3:20p Main Office Andrew Wood M.D. 78364 465.9 461.9 466.0 Office Visit 06/15/2005 11:15a Main Office Lori HarrisonLuis 30554 466.0 Office Visit 07/27/2004 10:10a Main Office Andrew Wood M.D. 25379 466.0 465.9 Office Visit 03/26/2004 12:10p Main Office Jamil Leonardo M.D. 09277 486 Office Visit 03/17/2004 10:00a Main Office Je Voss [facility] 61758 466.0 382.9 Office Visit 03/09/2004 11:10a Main Office Jamil Leonardo M.D. 43057 465.9 Office Visit 12/01/2003 10:45a [facility] Office Freda Mckenna [facility] 04446 719.47 Office Visit 12/24/2000 9:10a [facility] Office Phoenix Jaimes M.D. 54517 Office Visit 04/10/2000 11:40a [facility] Office Andrew Wood M.D. 24017 Office Visit 04/03/2000 7:45p Main Office ZOILA Blandon 53292 Office Visit 03/29/2000 9:45a Main Office Mery Olivo Alejandro 66126 Plan of Care 03/26/2017 - Bozena Lackey M.D.H25.13 Age-related nuclear cataract, soortcjacF39.3131 Nexdtve age-related mclr degn, bilateral, early dry pbpgiI88.818 Encounter for other preprocedural examinationComments:cleared for surgery. You should do fine. no vitamins or supplements until after the second surgery.Z23 Encounter for immunizationComments:tdap today.AllComments:~B_~U_ Medication Management~b_~u_ Patient Understands medications she's taking? Yes No Are there Barriers to Adherence? Yes No Has the patient been asked about herbal supplements and therapies, and OTC meds? Yes No
== END 2017-04-22 04:36 | disposition home or self-care (01) ==
LOC: ED 03:55
DX: R10.31 Right lower quadrant pain (principal); R11.0 Nausea; R32 Unspecified urinary incontinence; M17.0 Bilateral primary osteoarthritis of knee; M75.51 Bursitis of right shoulder
CPT/HCPCS: 99282

== ENCOUNTER 2017-05-18 16:59 | Emergency (ER) | payer MEDICARE, BC ==
--- OUTSIDE RECORDS SUMMARY | 2017-05-18 17:09 | XMS REPORT ---
:1930 External Reference #:[id number] Author Organization [facility] Address [address] [place] [address] Phone [phone] Care Team Providers Name Role Phone Roxana Girard Primary Care Physician Unavailable Payers Type Date Identification Numbers Payment Provider Subscriber Medicare Primary Policy Number: [id number] Medicare - NGS Madhuri Sandhu PayID: [id number] [address] [place] [address] Commercial Policy Number: [id number] Sun[employer] Plan Madhuri Sandhu Group Name: [id number] PayID: [id number] [place] [address] Problems Date Description Provider Status Onset: Vertigo Active Onset: Headache Active Onset: Carcinoma of breast Active Onset: Knee pain Active Note: bilateral Onset: 05/06/2017 Presence of intraocular lens Poncho Ray M.D. 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 Active degeneration of left eye Onset: 08/27/2016 Bilateral age-related nonexudative Poncho Ray M.D. Active macular degeneration Onset: 08/27/2016 Nuclear senile cataract Poncho Ray M.D. 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 once a day Prednisolone Active Suspension 1% 15unit 1 drop Poncho Acetate 018 s left Zablocki, eye M.D. once a day Ciprofloxacin Hx Solution 0.3% 10ml 1 drop Poncho HCL 018 - left Zablocki, eye 3 M.D. 018 times daily No Active Hx Unknown Medications 017 - 018 Results Description No Information Procedures Date CPT Code Description Status 04/21/2017 83980 Extracapsular Cataract Extraction W/Intraocular Lens Completed 04/14/2017 78556 Extracapsular Cataract Extraction W/Intraocular Lens Completed 04/09/2017 27264 Ophthalmic Biometry Completed 04/09/2017 02038 Ophthalmic Biometry Completed 03/05/2017 52936 Scanning Computerized Opthalmic Diagnostic Posterior Completed Seg Retina 03/05/2017 23974 Est Patient Comprehensive Exam Completed 08/27/2016 74663 New Patient Comprehensive Exam Completed Encounters Type Date Location Provider CPT E/M Dx Office Visit 04/09/2017 10:30a Jamil Santana MD, Poncho Ray, [address] H25.11 juan Ross H35.3111 H25.12 H35.3122 Plan of Care 05/06/2017 - Poncho Ray M.D.Z96.1 Presence of intraocular lensComments: Smoking can increase the risk of developing or worsening any eye related disease , as well as affect your overall health. If you are a smoker, we strongly recommend that you quit.If you are not a smoker, we strongly recommend that you do not start. Your lens implant looks stable in both eyes at this time. You should be done, or almost done with your drops at this time according to your surgical calendar. I have given you a prescription for glasses. If you have any questions, please feel free to call our office at . CONTINUE USING MOISTURE DROPS.Follow up:6MONTHS VISION CHECK
--- OUTSIDE RECORDS SUMMARY | 2017-05-18 17:09 | XMS REPORT ---
:1930 External Reference #:[id number] Author Organization [facility] Address [address] [place] [address] Phone [phone] Care Team Providers Name Role Phone Bozena Lackey Care Team Information Quality Process Engineer Unavailable Bozena Lackey Primary Care Physician Unavailable Payers Type Date Identification Numbers Payment Provider Subscriber Medicare Primary Effective: Policy Number: Medicare Yefri Rice 2000 [id number] PayID: [id number] [address] [place] [address] Medigap Part B Effective: 2004 Policy Number: [place] Madhuri Rice [id number] Health Care PayID: [id number] [address] [place] [address] Problems Date Description Provider Status Onset: 05/10/2011 Malignant neoplasm of female breast Nikole Everett M.D. Active Onset: 05/10/2011 Cellulitis Nikole Everett M.D. Active Onset: 04/24/2011 Peripheral vertigo Jamil Leonardo M.D. Active Social History Type Date Description Comments Marital Status Patient is Living Situation Patient lives alone. [facility] Cigarette Use Never Smoked Cigarettes ETOH Use Denies alcohol use Smoking Patient has never smoked Seat Belt/Car Seat Always uses a seat belt Allergies, Adverse Reactions, Alerts Date Description Reaction Status Severity Comments 04/24/2011 NKDA active Medications Medication Date Status Form Strength Qnty SIG Indications Ordering Provider Neomycin/Poly 04/25/ Active Suspension 3.5-52087- 10ml 2-4 drops H62.41 Jamil Avila myxin/Hydroco 2017 1 in l ear Lorna craig four times MD jorgito (Otic) a day No Active 07/10/ Hx Unknown Medications 2016 - 2017 Meclizine HCL 10/27/ Hx Tablets 12.5mg 30tabs take 1-2 386.10 Lori 2013 - tid prn for Christy, 07/09/ dizziness Afnp-C 2016 Cephalexin 05/12/ Hx Tablets 500mg 28tabs 1 po qid 682.8 Nikole M. 2012 - for 7 days LaFjohn, 10/27/ M.D. 2013 Antivert 04/24/ Hx Tablets 12.5mg 30tabs 1 po tid Jamil Huynh 2012 - prn for Breiman, 05/09/ vertigo M.D. 2012 Amoxicillin 07/02/ Hx Capsules 500mg 21caps 1 po tid 382.9 [facility]. 2010 - for 7 days Marguerite, 04/24/ M.D. 2011 Ciprodex 07/02/ Hx Suspension 0.3-0.1% 7.500m 4 gtts bid 380.22 Nikole M. 2010 - l for 7 days, Marguerite, 04/24/ left ear M.D. 2011 Antivert 10/22/ Hx Tablets 12.5mg 30tabs 1-2 PO tid Mery 2007 - prn Hilyanet, 11/01/ Dizziness Afnp-C 2007 Biaxin 06/15/ Hx Tablets 500mg 20tabs 1 PO bid Lori 2005 - X10 Days Christy, 06/25/ Afnp-C 2006 Biaxin 07/27/ Hx Tablets 500mg 20tabs 1 po bid Andrew Margarita 2005 - Midaimee, 10/22/ M.D. 2007 Biaxin XL 03/17/ Hx 500mg 20unit Je 2005 - s Bipin, 03/26/ WEB PROGRAMMER 2005 One P.O. bid For Ten Days Albuterol 03/17/ Hx 1units 2 puffs qid Je Inhaler 2005 - prn Bipin, 07/27/ WEB PROGRAMMER 2005 Robitussin ac 03/09/ Hx 4Oz 1-2 tsp po Andrew T. 2003 - q4h prn Israel, 10/22/ cough M.D. 2007 Handicap 12/21/ Hx needed due Freda Parking 2003 - to: ankle Bala, Permit 03/09/ sprain WEB PROGRAMMER 2003 9\\23\\04 Biaxin 01/06/ Hx Tabs 500mg 20tabs 1 PO bid Phoenix Ruiz 2000 - Fiona, 01/16/ M.D. 2000 Augmentin 12/24/ Hx 500mg 20unit 1 PO bid Phoenix A. 2000 - s Darlow, 01/03/ M.D. 2000 Duratuss GP 12/24/ Hx 20unit 1 PO Q 12 Phoenix A. 2000 - s HR prn Head Darlow, 01/03/ Congestion M.D. 2000 Tequin 04/10/ Hx 400mg 10unit 1 PO qd Andrew T. 2000 - s Midura, 12/24/ M.D. 2000 Duratuss 04/03/ Hx 8units 1 PO bid Freda 2000 - prn Head Bala, 04/08/ Congestion WEB PROGRAMMER 2000 Vioxx 04/03/ Hx 25mg 12unit 1 PO qd Freda 2000 - s Bala, 04/10/ WEB PROGRAMMER 2000 Zithromax 03/29/ Hx 250mg 6units 2 Tabs Day Mery 2000 - 1 Pallavi, 04/03/ Afnp-C 2000 1 Tab qd Days 2 Thru 5 Femara / Hx Tablets 2.5mg 30tabs take one Bael, 0000 - tablet by Doron 07/09/ mouth one 2016 time daily Augmentin / Hx Tablets 20tabs 1 po qd Unknown 0000 - 2011 Immunizations CPT Code Status Date Vaccine Lot # [id number] Given 03/26/2017 Tdap Tetanus, W Pertussis [id number] Given 12/22/2009 DO Not Use Split Influenza Virus Vaccine Vital Signs Date Vital Result Comment 04/29/2017 BP Systolic 122 mmHg BP Diastolic 72 mmHg Heart Rate 72 /min Body Temperature 98.0 F Height 66 inches 5'6" Weight 154.12 lb BMI (Body Mass Index) 24.9 kg/m2 04/25/2017 BP Systolic 120 mmHg BP Diastolic 76 mmHg Heart Rate 80 /min Body Temperature 98.2 F Respiratory Rate 16 /min Height 66 inches 5'6" Weight 154.00 lb BMI (Body Mass Index) 24.9 kg/m2 03/26/2017 BP Systolic 132 mmHg BP Diastolic [...] 3.2 x10^3/UL 1.5-7.2 Lymph# 1.3 x10^3/UL 0.7-4.9 [place]# 0.2 x10^3/UL 0.1-0.9 Gran % 65.9 % 42.2-75.2 Lymph % 29.0 % 20.5-51.1 [place]% 5.1 % 1.7-9.3 Comprehensive Metabolic Prof 10/09/2016 [...] 0.50-1.40 One Over Creatinine 1.20 Cytology Non [place] 03/04/2008 Cytology Non [place] <SEE 14 NOTE> Complete Blood 10/22/2006 WBC [...] Ratio 21.6 Calc 8.0-36.0 15 CBC Electronic (a) 03/17/2004 WBC 9.5 3.6-9.6 Lymphocytes 22.5 % [...] change was based on recommendations from the [place] [employer]. 13 Please note change in reference range effective 07 . 14 ---- RUN DATE: 03/15/08 [facility] NMI LIVE PAGE 1 RUN TIME: 1537 Specimen Inquiry RUN USER: INTERFACE -- Name: MADHURI RICE [facility]#: [id number] Status: REG REF Re03/04/08 Age/Sex: 77/F Unit#: [id number] Location: [facility]. : 31 -- Specimen: [id number] SOUT Spec Date: 03/04/[address] [facility] [address]: Tab frank MD Spec Type: CYTOLOGY [...] of this specimen. ADDENDUM Addendum #1 Entered: 03/08/08-2534 The following immunohistochemical stains were performed with appropriate controls on the cell block material: ER: Positive, 2-3+, 90% of malignant cells. NE: Positive, 1-2+, 5% of malignant cells. Fluorescent in situ hybridization studies for Her2/Arturo Gene amplification are pending and will be reported in an addendum. -- DEPARTMENT OF PATHOLOGY, [address] [place] [address] [facility] Permit #[id number] Vandana Khan M.D. Retail Brand Ambassador jose l -- -- RUN DATE: 03/15/08 [facility] NMI LIVE PAGE 2 RUN TIME: 1537 Specimen Inquiry RUN USER: INTERFACE -- Name: MADHURI RICE#: [id number] Status: REG REF Re03/04/08 Age/Sex: 77/F Unit#: [id number] Location: [facility] : 31 -- -- CONTINUED -- ADDENDUM (Continued) Addendum Review (signature on file) JM DUONG MD 03/08/08 -- Addendum #2 Entered: 03/15/08-1307 Her2/Arturo by FISH has been performed at [facility] in [place], [place]. The testing reveals: Patient Name: MADHURI RICE Collection Date: 03/04/2008 Ordering Physician: Jm Duong M.D. Received Date: 03/09/2008 Treating Physician: Shannon Report Date: 03/12/2008 Ordering Facility: [facility] Ref #: [id number] Specimen ID #: [id number] Date of ,Sex: 1930, F Fluorescence in [...] for analysis. FISH was performed using the [employer] HER-2 DNA Probe Kit. -- DEPARTMENT OF PATHOLOGY, [address] [place] [address] [facility] Permit #[id number] Vandana Khan M.D. Retail Brand Ambassador Dir jose l -- -- RUN DATE: 03/15/08 [facility] NMI LIVE PAGE 3 RUN TIME: 1537 Specimen Inquiry RUN USER: INTERFACE -- Name: MADHURI RICE Status: REG REF Re03/04/08 Age/Sex: 77/F Unit#: [id number] Location: [facility] : 31 -- -- CONTINUED -- ADDENDUM (Continued) Probe Name Detection Parameters Result ISCN PathVysion amplification of the HER-2 gene NOT AMPLIFIED nuc frederick(D17Z1,HER-2)x2 (Original [facility] report available upon request by calling Pathology at [phone]). Addendum Review (signature on file) JM DUONG MD 03/15/08 -- Initial evaluation performed by Jorgito MURRAY([facility]) 03/07/08 Final Interpretation electronically signed by: JM DUONG MD 03/07/08 09 47 -- -- DEPARTMENT OF PATHOLOGY, [address] [place] [address] [facility] Permit #[id number] Jm Duong M.D. Director Melanie Becker M.D. Retail Brand Ambassador Dir jose l -- 15 SPECIMEN MARKEDLY LIPEMIC 16 SPECIMEN RAN 24 HOURS AFTER DRAW. 17 RESULT VERIFIED BY REPEAT ANALYSIS Procedures Date CPT Code Description Status Comment 02/17/2017 Mammogram Completed 07/10/2016 Colonoscopy Completed never 01/09/2016 Mammogram Completed 03/10/2011 Bone Mineral Density Test Completed 02/26/2008 Mammogram Completed 03/17/2004 14608 Nebulizer Treatment Completed Encounters Type Date Location Provider CPT E/M Dx Office Visit 04/25/2017 10:40a [place] [address] H62.41 Office Visit 03/26/2017 10:00a Main Office Bozena Lackey M.D. 56085 H25.13 H35.3131 Z01.818 Z23 Office Visit 10/09/2016 11:00a [facility] Office ZOILA Yuen 87439 M25.562 M25.561 R26.2 Office Visit 09/11/2016 10:00a [facility] Office ZOILA Yuen 38055 M25.562 M25.561 R26.2 Office Visit 07/10/2016 1:00p [facility] Office ZOILA Yuen 82238 M25.562 M25.561 R26.2 Office Visit 10/27/2012 5:30p Main Office Lori HarrisonRaymond-C 23348 386.10 Office Visit 05/16/2011 9:40a Main Office Nikole Everett M.D. 31551 682.8 Office Visit 05/13/2011 9:40a [facility] Nikoel Everett M.D. 54631 682.8 Office Visit 05/10/2011 8:40a Main Office Nikole Everett M.D. 58269 682.8 174.9 Office Visit 04/24/2011 1:10p Main Office Jamil Leonardo M.D. 84860 386.10 Office Visit 07/02/2010 10:40a [facility] Nikole Everett M.D. 77115 382.9 380.22 Office Visit 01/17/2010 9:45a [facility] Freda Mckenna WEB PROGRAMMER 16103 465.9 Office Visit 02/24/2008 9:00a Main Office ZOILA Blandon 59396 611.72 Office Visit 10/22/2006 8:15p Main Office Mery OlivoRaymond-C 95083 078.81 780.79 Office Visit 03/24/2006 2:10p Main Office Andrew Wood M.D. 46730 465.9 461.9 466.0 Office Visit 12/11/2005 3:20p Main Office Andrew Wood M.D. 55104 465.9 461.9 466.0 Office Visit 06/15/2005 11:15a Main Office Lori HarrisonRaymond-C 21146 466.0 Office Visit 07/27/2004 10:10a Main Office Andrew Wood M.D. 12814 466.0 465.9 Office Visit 03/26/2004 12:10p Main Office Jamil Leonardo M.D. 19785 486 Office Visit 03/17/2004 10:00a Main Office Je Voss WEB PROGRAMMER 63167 466.0 382.9 Office Visit 03/09/2004 11:10a Main Office Jamil Leonardo M.D. 67721 465.9 Office Visit 12/01/2003 10:45a [facility] Office ABIGAIL BlandonP 51404 719.47 Office Visit 12/24/2000 9:10a [facility] Phoenix Jaimes M.D. 78781 Office Visit 04/10/2000 11:40a [facility] Andrew Wood M.D. 98276 Office Visit 04/03/2000 7:45p Main Office ABIGAIL BlandonP 71959 Office Visit 03/29/2000 9:45a Main Office Luis Retana 97114 Plan of Care Future Appointment(s):06/10/2017 3:20 pm - Bozena Lackey M.D. at Main Htrijq6204/29/2017 - Raymond Retana-CH62.41 Otitis externa in oth diseases classd elswhr, right earComments:debris was irrigated with tepid h20 with good effect , tm intact with diminished light reflex, somesx improvement with irrigation r tm ? fluid behind tm no drainageAllComments:~B_~U_Medication Management~b_~u_ Patient Understands medications she's taking? Yes No Are there Barriers to Adherence? Yes No Has the patient been asked about herbal supplements and therapies, and OTC meds? Yes No ~B_~U_Care Plan~b_~u_1. Patient has been queried about patient's goals/preferences and functional/lifestyle goals at relevant visits. If relevant, describe: na2. Treatment goals as explained to the patient: abovefurther eval of sx 3. Are there barriers to meeting treatment goals? Yes No If Yes, please describe:4. Self-Management goals as described to the patient: Yes No try some otc flonase or nasonex x 2 weekscontinue ear gtts a couple more days Discussed ent eval if sx persist has pcp f/u 06/25
--- OUTSIDE RECORDS SUMMARY | 2017-05-18 17:10 | XMS REPORT ---
:1930 External Reference #:[id number] Author Organization [facility] Address [address] [place] [address] Phone [phone] Care Team Providers Name Role Phone Bozena Lackey Care Team Information Fisher Unavailable Bozena Lackey Primary Care Physician Unavailable Payers Type Date Identification Numbers Payment Provider Subscriber Medicare Primary Effective: Policy Number: Medicare Yefri Rice 2000 [id number] PayID: [id number] [address] [place] [address] Medigap Part B Effective: 2004 Policy Number: [place] Madhuri Rice [id number] Health Care PayID: [id number] [address] [place] [address] Problems Date Description Provider Status Onset: 05/10/2011 Malignant neoplasm of female breast Nikole Everett M.D. Active Onset: 05/10/2011 Cellulitis Nikole Everett M.D. Active Onset: 04/24/2011 Peripheral vertigo Jamil Leonardo M.D. Active Social History Type Date Description Comments Marital Status Patient is Living Situation Patient lives alone. [facility]. Cigarette Use Never Smoked Cigarettes ETOH Use Denies alcohol use Smoking Patient has never smoked Seat Belt/Car Seat Always uses a seat belt Allergies, Adverse Reactions, Alerts Date Description Reaction Status Severity Comments 04/24/2011 NKDA active Medications Medication Date Status Form Strength Qnty SIG Indications Ordering Provider Neomycin/Poly 04/25/ Active Suspension 3.5-52132- 10ml 2-4 drops H62.41 Jamil Avila myxin/Hydroco [...] Capsules 500mg 21caps 1 po tid 382.9 [facility]. 2010 - for 7 days Marguerite, [...] 20unit Je 2005 - s Bipin, 03/26/ ORANGE GROWER 2005 One P.O. bid For Ten Days Albuterol 03/17/ Hx 1units 2 puffs qid Je Inhaler 2005 - prn Bipin, 07/27/ [place] GROWER 2005 Robitussin ac 03/09/ Hx 4Oz 1-2 tsp po Andrew T. 2003 - q4h prn Israel, 10/22/ cough M.D. 2007 Handicap 12/21/ Hx needed due Freda Parking 2003 - to: ankle Bala, Permit 03/09/ sprain ORANGE GROWER 2003 9\\23\\04 Biaxin 01/06/ Hx Tabs 500mg [...] 2000 - prn Head Bala, 04/08/ Congestion ORANGE GROWER 2000 Vioxx 04/03/ Hx 25mg 12unit 1 PO qd Freda 2000 - s Bala, 04/10/ OR[place] GROWER 2000 Zithromax 03/29/ Hx 250mg 6units 2 [...] CPT Code Status Date Vaccine Lot # [id number] Given 03/26/2017 Tdap Tetanus, W Pertussis [id number] Given 12/22/2009 DO Not Use Split Influenza Virus Vaccine Vital Signs Date Vital Result Comment 04/25/2017 BP Systolic 120 mmHg BP Diastolic [...] 3.2 x10^3/UL 1.5-7.2 Lymph# 1.3 x10^3/UL 0.7-4.9 Overton# 0.2 x10^3/UL 0.1-0.9 Gran % 65.9 % 42.2-75.2 Lymph % 29.0 % 20.5-51.1 Overton% 5.1 % 1.7-9.3 Comprehensive Metabolic Prof 10/09/2016 [...] 0.50-1.40 One Over Creatinine 1.20 Cytology Non Assistant Film Editor 03/04/2008 Cytology Non Assistant Film Editor <SEE 14 NOTE> Complete Blood 10/22/2006 WBC [...] change was based on recommendations from the [place] [employer]. 13 Please note change in reference range effective 07 . 14 ---- RUN DATE: 03/15/08 [facility] NMI LIVE PAGE 1 RUN TIME: 1537 Specimen Inquiry RUN USER: INTERFACE -- [id number] Status: REG REF Re03/04/08 Age/Sex: 77/F Unit#: [id number] Location: [facility]. : 31 -- Specimen: [id number] SOUT Spec Date: 03/04/[address]: Tab frank MD Spec Type: CYTOLOGY Received: 03/07/081766 Copies to: Phoenix felton MD SOURCE FINE [...] of this specimen. ADDENDUM Addendum #1 Entered: 03/08/08-5176 The following immunohistochemical stains were performed with appropriate controls on the cell block material: ER: Positive, 2-3+, 90% of malignant cells. MS: Positive, 1-2+, 5% of malignant cells. Fluorescent in situ hybridization studies for Her2/Arturo Gene amplification are pending and will be reported in an addendum. -- DEPARTMENT OF PATHOLOGY, [address] [place] [address] [facility] Permit #[id number] Jm Duong M.D. Director Melanie Becker M.D. Research And Development Engineer Dir jose l -- -- RUN DATE: 03/15/08 [facility] NMI LIVE PAGE 2 RUN TIME: 1537 Specimen Inquiry RUN USER: INTERFACE -- Name: MADHURI RICE Status: REG REF Re03/04/08 Age/Sex: 77/F Unit#: [id number] Location: [facility] : 31 -- -- CONTINUED -- ADDENDUM (Continued) Addendum Review (signature on file) JM DUONG MD 03/08/08 -- Addendum #2 Entered: 03/15/08-1307 Her2/Arturo by FISH has been performed at [facility] in [place], [place]. The testing reveals: Patient Name: MADHURI RICE Collection Date: 03/04/2008 Ordering Physician: Jm Duong M.D. Received Date: 03/09/2008 Treating Physician: Shannon Report Date: 03/12/2008 Ordering Facility: [facility] Ref #: [id number] Specimen ID #: [id number] Date of ,Sex: 1930, F Fluorescence in [...] for analysis. FISH was performed using the Errund HER-2 DNA Probe Kit. -- DEPARTMENT OF PATHOLOGY, [address] [place] [address] [facility] Permit #[id number] Jm Duong M.D. Director Melanie Becker M.D. Research And Development Engineer Dir jose l -- -- RUN DATE: 03/15/08 [facility] NMI LIVE PAGE 3 RUN TIME: 1537 Specimen Inquiry RUN USER: INTERFACE -- Name: KRYSTALMADHURI Status: REG REF Re03/04/08 Age/Sex: 77/F Unit#: [id number] Location: [facility] : 10/13/32 -- -- CONTINUED -- ADDENDUM (Continued) Probe Name Detection Parameters Result ISCN PathVysion amplification of the HER-2 gene NOT AMPLIFIED nuc fredreick(D17Z1,HER-2)x2 (Original [facility] report available upon request by calling Pathology at [phone]). Addendum Review (signature on file) JM DUONG MD 03/15/08 -- Initial evaluation performed by Jorgito MURRAY([facility]) 03/07/08 Final Interpretation electronically signed by: JM DUONG MD 03/07/08 09 47 -- -- DEPARTMENT OF PATHOLOGY, [address] [place] [address] [facility] Permit #[id number] Jm Duong M.D. Director Melanie Becker M.D. Research And Development Engineer Dir jose l -- 15 SPECIMEN MARKEDLY LIPEMIC 16 SPECIMEN RAN 24 HOURS AFTER DRAW. 17 RESULT VERIFIED BY REPEAT ANALYSIS Procedures Date CPT Code Description Status Comment 02/17/2017 Mammogram Completed 07/10/2016 Colonoscopy Completed never 01/09/2016 Mammogram Completed 03/10/2011 Bone Mineral Density Test Completed 02/26/2008 Mammogram Completed 03/17/2004 53087 Nebulizer Treatment Completed Encounters Type Date Location Provider CPT E/M Dx Office Visit 03/26/2017 10:00a Main Office Bozena Lackey M.D. 70285 H25.13 H35.3131 Z01.818 Z23 Office Visit 10/09/2016 11:00a [facility] Office ZOILA Yuen 82075 M25.562 M25.561 R26.2 Office Visit 09/11/2016 10:00a [facility] ZOILA Yuen 17646 M25.562 M25.561 R26.2 Office Visit 07/10/2016 1:00p [facility] Office ZOILA Yuen 39011 M25.562 M25.561 R26.2 Office Visit 10/27/2012 5:30p Main Office Luis Kim 72069 386.10 Office Visit 05/16/2011 9:40a Main Office Nikole Everett M.D. 86727 682.8 Office Visit 05/13/2011 9:40a [facility] Nikole Everett M.D. 77268 682.8 Office Visit 05/10/2011 8:40a Main Office Nikole Everett M.D. 07206 682.8 174.9 Office Visit 04/24/2011 1:10p Main Office Jamil Leonardo M.D. 12103 386.10 Office Visit 07/02/2010 10:40a [facility] Nikole Everett M.D. 61418 382.9 380.22 Office Visit 01/17/2010 9:45a [facility] ABIGAIL BlandonP 52726 465.9 Office Visit 02/24/2008 9:00a Main Office ZOILA Blandon 85435 611.72 Office Visit 10/22/2006 8:15p Main Office Mery OlivoRaymond-Nanci 45071 078.81 780.79 Office Visit 03/24/2006 2:10p Main Office Andrew Wood M.D. 58389 465.9 461.9 466.0 Office Visit 12/11/2005 3:20p Main Office Andrew Wood M.D. 21175 465.9 461.9 466.0 Office Visit 06/15/2005 11:15a Main Office Lori HarrisonLuis 01869 466.0 Office Visit 07/27/2004 10:10a Main Office Andrew Wood M.D. 06404 466.0 465.9 Office Visit 03/26/2004 12:10p Main Office Jamil Leonardo M.D. 29089 486 Office Visit 03/17/2004 10:00a Main Office Je VossZOILA 66914 466.0 382.9 Office Visit 03/09/2004 11:10a Main Office Jamil Leonardo M.D. 08170 465.9 Office Visit 12/01/2003 10:45a [facility] Office ZOILA Blandon 26671 719.47 Office Visit 12/24/2000 9:10a [facility] Phoenix Jaimes M.D. 36871 Office Visit 04/10/2000 11:40a [facility] Andrew Wood M.D. 77648 Office Visit 04/03/2000 7:45p Main Office Freda ZOILA Mckenna 19303 Office Visit 03/29/2000 9:45a Main Office Mery JohnsonLuis holt 59983 Plan of Care Future Appointment(s):06/10/2017 3:20 pm - Bozena Lackye M.D. at Main Smgdpn8304/25/2017 - Jamil Gao MD62.41 Otitis externa in oth diseases classd elswhr, right earNew Medication:Neomycin/Polymyxin/ Hydrocortisone (Otic) 3.6-02640-7JcsSrbxyjwc:~B_~U_Medication Management~b_~u_ Patient Understands medications she's taking? Yes No Are there Barriers to Adherence? Yes No Has the patient been asked about herbal supplements and therapies, and OTC meds? Yes No
--- OUTSIDE RECORDS SUMMARY | 2017-05-18 17:10 | XMS REPORT ---
:1930 External Reference #:[id number] Author Organization [facility] Address [address] [place] [address] Phone [phone] Care Team Providers Name Role Phone Roxana Girard Primary Care Physician Unavailable Payers Type Date Identification Numbers Payment Provider Subscriber Medicare Primary Policy Number: [id number] Medicare - NGS Madhuri Sandhu PayID: [id number] [address] [place] [address] Commercial Policy Number: [id number] [employer] Madhuri Sandhu Group Name: [id number] PayID: [id number] [place] [address] Problems Date Description Provider Status Onset: Vertigo Active Onset: Headache Active Onset: Carcinoma of breast Active Onset: Knee pain Active Note: bilateral Onset: 03/05/2017 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 times daily Ketorolac Active Solution 0.4% 5ml 1 drop Poncho Tromethamine 018 left Zablocki, eye 3 M.D. times daily 1 drop right eye 2 times daily Prednisolone Active Suspension 1% 15unit 1 drop Poncho Acetate 018 s left Zablocki, eye 3 M.D. times daily 1 drop right eye 2 times daily No Active Hx Unknown Medications 017 - 018 Results Description No Information Procedures Date CPT Code Description Status 04/21/2017 61123 Extracapsular Cataract Extraction W/Intraocular Lens Completed 04/14/2017 18384 Extracapsular Cataract Extraction W/Intraocular Lens Completed 04/09/2017 72643 Ophthalmic Biometry Completed 04/09/2017 38672 Ophthalmic Biometry Completed 03/05/2017 16389 Scanning Computerized Opthalmic Diagnostic Posterior Completed Seg Retina 03/05/2017 08642 Est Patient Comprehensive Exam Completed 08/27/2016 09307 New Patient Comprehensive Exam Completed Encounters Type Date Location Provider CPT E/M Dx Office Visit 04/09/2017 10:30a Jamil Santana MD, Poncho Ray, 02203 H25.11 Vandana H35.3111 H25.12 H35.3122 Plan of Care Future Appointment(s):05/06/2017 11:30 am - Poncho Ray M.D. at Jamil Santana MD, 04/22/2017 - Poncho Ray M.D.Z96.1 Presence of intraocular lensComments:Smoking can increase the risk of developing or worsening any eye related disease, as well as affect your overall health. If you are a smoker, we strongly recommend that you quit.If you are not a smoker, we strongly recommend that you do not start. The artifical lens implant in your left eye appears to be stable. Since this is the first day after surgery, your left eye is still dilated and the vision will still be slightly blurry. The dilation will go down over the next day or two. Continue taking your eye drops as directed on the surgical calendar. If you have any questions, please call our office.
[2017-05-18 17:14] VITALS: BP 137/82
--- NOTE | 2017-05-18 17:36 | UC ---
Ear Complaint HPI - HPI Summary HPI Summary: 86 yo WF c/o left pinna and tragus pain and deep B/L ear pain associated with minor serous drainage on from right ear. and some clear drainage from left eye. Denies URI sx - History of Current Complaint Chief Complaint: UCRespiratory Stated Complaint: EAR PAIN,SINUS COMPLAINT Time Seen by Provider: 05/18/17 17:16 ?: Yes Onset/Duration: Lasting Days Severity Initially: Moderate Pain Intensity: 8 - Allergies/Home Medications Allergies/Adverse Reactions: Allergies Allergy/AdvReac Type Severity Reaction Status Date / Time No Known Allergies Allergy Verified 05/18/17 17:14 PMH/Surg Hx/FS Hx/Imm Hx - Additional Past Medical History Additional PMH: right OM - Surgical History Surgical History: Yes Surgery Procedure, Year, and Place: BREAST CANCER, LEFT LUMPECTOMY 2009. Teeth extraction - Family History Known Family History: Negative: Respiratory Disease - Social History Alcohol Use: None Substance Use Type: None Smoking Status (MU): Never Smoked Tobacco Review of Systems Constitutional: Negative Skin: Negative Eyes: Negative ENT: Ear Ache Respiratory: Negative Cardiovascular: Negative Gastrointestinal: Negative Genitourinary: Negative Motor: Negative Neurovascular: Negative Musculoskeletal: Negative Neurological: Negative Psychological: Negative All Other Systems Reviewed And Are Negative: Yes Physical Exam Triage Information Reviewed: Yes Appearance: Well-Appearing, No Pain Distress Vital Signs: Initial Vital Signs Temp 36.8 C 05/18/17 17:09 Pulse 89 05/18/17 17:09 Resp 18 05/18/17 17:09 BP 137/82 05/18/17 17:09 Pulse Ox 99 05/18/17 17:09 Eye Exam: Normal ENT: Positive: TM dull - on right with mild serous water particles behind TM, TM red - on left, Other - TTP left pinna and tragus, milder on left Dental Exam: Normal Neck exam: Normal Neck: Positive: 1 Respiratory Exam: Normal Cardiovascular Exam: Normal Cardiovascular: Positive: RRR Abdominal Exam: Normal Musculoskeletal Exam: Normal Neurological Exam: Normal Psychological Exam: Normal Skin Exam: Normal Ear Complaint Course/Dx - Course Course Of Treatment: pt has had recent right OM (appears to be right serous OM currently) but now the left ear seems to be affected - Differential Dx/Diagnosis Provider Diagnoses: left otitis externa. left otitis media. Right serous Otitis media. elevated BP in acute illness Discharge - Discharge Plan Condition: Stable Disposition: HOME Prescriptions: Amoxicillin/Clavulanate TAB* [Augmentin TAB 500 mg*] 500 mg PO BID 10 Days #20 tab Ciproflox/Dexameth OTIC.SUSP* [Ciprodex OTIC.SUSP*] 1 drop .SEE ORDER QID 7 Days #1 btl Patient Education Materials: Otitis Externa (ED), Ear Infection (ED) Referrals: Bozena Lackey MD [Primary Care Provider] - Additional Instructions: please follow up with ENT doctor within one week
== END 2017-05-18 18:05 | disposition home or self-care (01) ==
LOC: UCEAST 16:59
DX: H60.92 Unspecified otitis externa, left ear (principal); H66.92 Otitis media, unspecified, left ear; H65.91 Unspecified nonsuppurative otitis media, right ear; R03.0 Elevated blood-pressure reading, without diagnosis of hypertension
CPT/HCPCS: 99212; G0463

== ENCOUNTER 2017-10-30 06:51 | Inpatient (IN) | payer MEDICARE, BC ==
--- NOTE | 2017-10-17 16:19 | RAD ---
Indication: History of breast cancer. 2 views of the chest including dual energy PA views are reviewed and compared to previous exam dated May 04, 2011. No mediastinal shift is noted. Tortuous descending aorta is noted. Lung keane appear hyperinflated. No evidence of alveolar consolidation is noted. No pleural fluid is identified. The lateral view of the thoracic spine demonstrates osteopenia with mild compression of the midthoracic vertebra which was likely present in 2011. IMPRESSION: Hyperinflated lung keane without evidence of active cardiopulmonary disease is noted. There is likely chronic interstitial disease. Surgical clips are noted in the left axilla.
--- NOTE | 2017-10-22 15:47 | HP ---
HISTORY AND PHYSICAL: DATE OF SURGERY: 10/30/17. DATE OF OFFICE VISIT: 10/17/17. SURGEON: Lidya Porras MD* (dictated by FRANCES Duarte). PROCEDURE: Right total knee arthroplasty. CHIEF COMPLAINT: Right knee pain. HISTORY OF PRESENT ILLNESS: Ms. Sandhu is an 86-year-old female with complaints of right knee pain. She has failed conservative treatment and elected to proceed with a right total knee arthroplasty, which is scheduled for 10/30/17. PAST MEDICAL HISTORY: Breast cancer. PAST SURGICAL HISTORY: 1. Left breast biopsy and lumpectomy. 2. Bilateral cataract removal. CURRENT MEDICATIONS: None. ALLERGIES: None. FAMILY HISTORY: Heart disease. SOCIAL HISTORY: An 86-year-old female, she lives alone. She does not smoke, use drugs, or alcohol. REVIEW OF SYSTEMS: A complete 14-point review of systems was reviewed with the patient, was all negative and noncontributory. She denies history of DVT, PE, hepatitis, HIV, or anesthesia problems. PHYSICAL EXAMINATION GENERAL: She is well developed, well nourished, in no acute distress. VITAL SIGNS: She stands 66 inches tall, weighs 151 pounds. Her blood pressure is 120/80 and heart rate 68. HEENT: Normocephalic, atraumatic. NECK: Supple. No palpable lymph nodes. PULMONARY: The lungs are clear to auscultation bilaterally. CARDIAC: Regular rate and rhythm. Strong S1 and S2. ABDOMEN: Soft, nontender, and nondistended. MUSCULOSKELETAL: Right lower extremity, the skin is intact. There are no open wounds or abrasions. There is a moderate joint effusion. She has tenderness over the medial and lateral joint line. Range of motion is 5 to 120 degrees of flexion with patellofemoral crepitus. 2+ dorsalis pedis pulses and intact sensation. Her lower extremity muscle group strengths are intact at 5/5. NEUROLOGIC: She is alert and oriented x3. ASSESSMENT AND PLAN: Ms. Sandhu is an 86-year-old female with end-stage osteoarthritis of the right knee. She has failed conservative treatment and elected to proceed with a right total knee arthroplasty, which is scheduled for 10/30/[address] Porras discussed the risks and benefits of the surgery at today's visit and all of her questions were answered. She will follow up with Dr. Porras in 2 weeks after the surgery. FRANCES DUARTE [id number]/[facility] #: [id number] MTDJade
[~2017-10-30 06:51] MED LIST changes: -Acetaminophen TAB* 325 MG PO PRN; -Cyclopentolate 1% OPTH.SOL* 2 ML BTL ONE; -Ketorolac 0.5% OPHTH (NF) 0.5 % 5 ML BTL ONE; -Lidocaine 1% MPF* 2 ML VIAL ONE; -Midazolam* 1 MG/ML 2 ML VIAL (2 MG) ONE; -Neomycin/Polymy/Dex OPHTH.OIN* 3.5 GM ONE; -Phenylephrine 2.5% OPTH.SOL* 2 ML BTL ONE; -Povidone Iodine 5% OPTH* 30 ML BTL ONE; +Sodium Citrate/Citric Acid* 15 ML UDC PO ONE; -Tetracaine 0.5% OPTH.SOL 4 ML* 1 DROP BTL ONE; -Tropicamide 1% OPTH.SOL* BTL ONE; -acetaZOLAMIDE TAB* 250 MG ONE
--- OUTSIDE RECORDS SUMMARY | 2017-10-30 06:56 | XMS REPORT ---
:1930 External Reference #:[id number] Author Organization [facility] Address [address] [place] [address] [place] [address] Phone [phone] Care Team Providers Name Role Phone Bozena Lackey MD Primary Care Physician Unavailable Payers Type Date Identification Numbers Payment Provider Subscriber Medicare Primary Effective: Policy Number: Medicare Madhuri Sandhu 2000 [id number] PayID: [id number] [address] [place] [address] Medigap Part B Policy Number: [id number] [facility] Madhuri Sandhu PayID: [id number] [address] [place] [address] Problems Date Description Provider Status Onset: 11/18/2016 Localized, primary osteoarthritis Lidya Porras M.D. Active Family History Date Family Member(s) Problem(s) Comments General Rheumatoid Arthritis Social History Type Date Description Comments Lives With Alone Occupation Retired ETOH Use Denies alcohol use Smoking Patient has never smoked Exercise Type/Frequency Exercises regularly Allergies, Adverse Reactions, Alerts Date Description Reaction Status Severity Comments 10/01/2012 NKDA active Medications Medication Date Status Form Strength Qnty SIG Indications Ordering Provider No Active 11/18/2016 Active Unknown Medications Medications Administered in Office Medication Date Status Form Strength Qnty SIG Indications Ordering Provider Synvisc Or Administered Injection Lidya Synvisc-One Joann Porras M.D. Injection 1 MG Synvisc Or Administered Injection Lidya Synvisc-One 017 Vandana Porras Injection 1 MG Synvisc Or Administered Injection Lidya Synvisc-One 017 Vern, M.D. Injection 1 MG Synvisc Or Administered Injection Lidya Synvisc-One Joann Porras M.D. Injection 1 MG Synvisc Or Administered Injection Lidya Synvisc-One Joann Porras M.D. Injection 1 MG Synvisc Or Administered Injection Lidya Synvisc-Billy Porras M.D. Injection 1 MG Depomedrol Administered Injection Lidya 40MG Joann Porras M.D. Depomedrol Administered Injection Lidya 40MG Joann Porras M.D. Vital Signs Date Vital Result Comment 10/17/2017 Height 66 inches 5'6" Weight 151.00 lb Heart Rate 68 /min BP Systolic Sitting 120 mmHg BP Diastolic Sitting 80 mmHg Respiratory Rate 18 /min Pain Level 7 BMI (Body Mass Index) 24.4 kg/m2 09/15/2017 Height 66 inches 5'6" Heart Rate 79 /min BP Systolic 136 mmHg BP Diastolic 80 mmHg Respiratory Rate 16 /min Body Temperature 98.6 F Pain Level 7 01/15/2017 Height 66 inches 5'6" Weight 157.00 lb Heart Rate 84 /min Respiratory Rate 16 /min Body Temperature 97.6 F Pain Level 3 BMI (Body Mass Index) 25.3 kg/m2 01/08/2017 Height 66 inches 5'6" Heart Rate 88 /min BP Systolic 150 mmHg BP Diastolic 90 mmHg Body Temperature 97.8 F 01/01/2017 Height 66 inches 5'6" Heart Rate 76 /min BP Systolic 116 mmHg BP Diastolic 62 mmHg Body Temperature 97.6 F 12/20/2016 Height 66 inches 5'6" Weight 156.00 lb Heart Rate 66 /min BP Systolic 125 mmHg BP Diastolic 76 mmHg BMI (Body Mass Index) 25.2 kg/m2 11/18/2016 Height 66 inches 5'6" Weight 158.00 lb Heart Rate 76 /min BP Systolic 115 mmHg BP Diastolic 80 mmHg Body Temperature 97.5 F Pain Level 8 BMI (Body Mass Index) 25.5 kg/m2 10/01/2012 Height 66 inches 5'6" Weight 157.00 lb Heart Rate 66 /min BP Systolic 130 mmHg BP Diastolic 77 mmHg BMI (Body Mass Index) 25.3 kg/m2 Results Description No Information Procedures Date CPT Code Description Status 01/15/2017 Inject/Drain Joint/Bursa Major W/O US Completed 01/08/2017 Inject/Drain Joint/Bursa Major W/O US Completed 01/01/2017 Inject/Drain Joint/Bursa Major W/O US Completed 11/18/2016 Inject/Drain Joint/Bursa Major W/O US Completed 10/01/2012 36769 FX Treatment Closed Phalanx Other Than Great Toe W/O Completed Manip 10/01/2012 51321 CLST TRMT Distal Radial FX Completed 03/25/2008 51732 EKG, Interpretation Only Completed 03/25/2008 62731 EKG, Interpretation Only Completed Encounters Type Date Location Provider CPT E/M Dx Office Visit 09/15/2017 [facility] L[facility] Porras M.D. 22660 M25.561 [facility] M25.562 M25.461 M25.462 M17.0 Office Visit 12/20/2016 2:15p [facility] Porras M.D. 05884 M25.562 [facility] M25.462 M25.461 M17.0 Office Visit 11/18/2016 1:30p [facility] L[facility] Porras M.D. 07521 M25.562 [facility] M25.561 M25.462 M25.461 M17.0 Plan of Care Future Appointment(s):11/11/2017 1:15 pm - FRANCES Larsen at [facility]10/30/2017 7:30 am - Hugo France PA-C at [facility]10/30/2017 7:30 am - FRANCES Larsen at [facility]10/30/2017 7:30 am - Lidya Porras M.D. at [facility]10/17/2017 - Lidya Porras M.D.M25.461 Effusion, right kneeFollow up:Follow up: 2 weeks after mngzilsX77.561 Pain in right kneeM17.12 Unilateral primary osteoarthritis, left kneeM21.161 Varus deformity, not elsewhere classified, right knee
--- OUTSIDE RECORDS SUMMARY | 2017-10-30 06:56 | XMS REPORT ---
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 Active Onset: 05/10/2011 Cellulitis Nikole Everett M.D. Active Onset: 04/24/2011 Peripheral vertigo Jamil Leonardo M.D. Active Family History Date Family Member(s) Problem(s) Comments Father 60's dt liver cirrhosis. Mother late 60's MD. First Daughter Lanny. healthy. Formerly [facility]. Second Daughter Andi. healthy. [place]. Social History Type Date Description Comments Marital Status Patient is Living Situation Patient lives alone. 2 daughters local, [place]. 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 2018 x 7days Neomycin/Poly 04/25/ Hx Suspension 3.5-41653- 10ml 2-4 drops H62.41 Jamil Avila myxin/Hydroco 2018 - 1 in l ear Lorna solorioisone 06/10/ four times MD jorgito (Otic) 2018 a day No Active 07/10/ Hx Unknown Medications 2016 - 2017 Meclizine HCL 10/27/ Hx Tablets 12.5mg 30tabs take 1-2 386.10 Lori 2012 - tid prn for Christy, 07/09/ dizziness Afnp-C 2016 Cephalexin 05/12/ Hx Tablets 500mg 28tabs 1 po qid 682.8 Nikole M. 2012 - for 7 days Marguerite, 10/27/ M.D. 2012 Antivert 04/24/ Hx Tablets 12.5mg 30tabs 1 po tid Jamil Huynh 2011 - prn for Breiman, 05/09/ vertigo M.D. 2011 Amoxicillin 07/02/ Hx Capsules 500mg 21caps 1 po tid 382.9 Nikole M. 2010 - for 7 days Marguerite, 04/24/ M.D. 2011 Ciprodex 07/02/ Hx Suspension 0.3-0.1% 7.500m 4 gtts bid 380.22 Nikole M. 2010 - l for 7 days, Marguerite04/24/ left ear M.D. 2011 Antivert 10/22/ Hx Tablets 12.5mg 30tabs 1-2 PO tid Mery 2007 - prn Hilyanet, 11/01/ Dizziness Afnp-C 2006 Biaxin 06/15/ Hx Tablets 500mg 20tabs 1 PO bid Lori 2005 - X10 Days Christy, 06/25/ Afnp-C 2005 Biaxin 05/20/ Hx Tablets 500mg 20tabs 1 po bid Andrew TJonel 2005 - Midura, 10/22/ M.D. 2007 Biaxin XL 03/17/ Hx 500mg 20unit Je 2005 - s Bipin, 03/26/ SUBSTANCE ABUSE CLINICIAN 2005 One P.O. bid For Ten Days Albuterol 03/17/ Hx 1units 2 puffs qid Je Inhaler 2005 - prn Bipin, SUBSTANCE ABUSE CLINICIAN 2005 Robitussin ac 03/09/ Hx 4Oz 1-2 tsp po Andrew T. 2004 - q4h prn Israel, 10/22/ cough M.D. 2007 Handicap 12/21/ Hx needed due Freda Parking 2003 - to: ankle Bala, Permit 03/09/ sprain SUBSTANCE ABUSE CLINICIAN 2003 9\\23\\04 Biaxin 01/06/ Hx Tabs 500mg 20tabs 1 PO bid Phoenix A. 2001 - Darrosa, 01/16/ M.D. 2000 Augmentin 12/24/ Hx 500mg 20unit 1 PO bid Phoenix AJonel 2001 - s Darrosa, 01/03/ M.D. 2000 Duratuss GP 12/24/ Hx 20unit 1 PO Q 12 Phoenix A. 2000 - s HR prn Head Darlow, 01/03/ Congestion M.D. 2000 Tequin 04/10/ Hx 400mg 10unit 1 PO qd Andrew TJonel 2000 - s Israel, 12/24/ M.D. 2000 Duratuss 04/03/ Hx 8units 1 PO bid Freda 2000 - prn Head Bala, 04/08/ Congestion SUBSTANCE ABUSE CLINICIAN 2000 Vioxx 04/03/ Hx 25mg 12unit 1 PO qd Freda 2000 - s Bala, 04/10/ SUBSTANCE ABUSE CLINICIAN 2000 Zithromax 03/29/ Hx 250mg 6units 2 Tabs Day Mery 2000 - 1 [place]f, 04/03/ Afnp-C 2000 1 Tab qd Days 2 Thru 5 Femara / Hx Tablets 2.5mg 30tabs take one Bael, 0000 - tablet by Doron 07/09/ mouth one 2016 time daily Augmentin / Hx Tablets 20tabs 1 po qd Unknown 0000 - 2011 Immunizations CPT Code Status Date Vaccine Lot # [id number] Given 03/26/2017 Tdap Tetanus, W Pertussis [id number] Given 12/22/2009 DO Not Use Split Influenza Virus Vaccine Vital Signs Date Vital Result Comment 10/01/2017 BP Systolic 126 mmHg BP Diastolic 80 mmHg Heart Rate 72 /min Body Temperature 98.2 F Respiratory Rate 16 /min Height 66 inches 5'6" Weight 157.00 lb BMI (Body Mass Index) 25.3 kg/m2 08/29/2017 BP Systolic 148 mmHg BP Diastolic 88 mmHg Heart Rate 76 /min Body Temperature 97.9 F Respiratory Rate 16 /min Height 66 inches 5'6" Weight 156.00 lb BMI (Body Mass Index) 25.2 kg/m2 06/10/2017 BP Systolic 154 mmHg BP Diastolic 98 mmHg Heart Rate 72 /min Body Temperature 97.1 F Height 66 inches 5'6" Weight 153.00 lb BMI (Body Mass Index) 24.7 kg/m2 04/29/2017 BP Systolic 122 mmHg BP Diastolic [...] 10/09/2016 Lyme IgG/IgM Ab <0.91 ISR 0.00-0.90 2, 3 Reflex Lyme Disease Ab, Quant, IgM <0.80 index 0.00-0.79 2, 4 Ehrlichiosis Panel 10/09/2016 E. chaffeensis ([facility]ME) IgG Titer Negative Neg :<1:64 2 E. chaffeensis ([facility]) IgM Titer Negative Neg:<1:20 [...] 3.2 x10^3/UL 1.5-7.2 Lymph# 1.3 x10^3/UL 0.7-4.9 [place]# 0.2 x10^3/UL 0.1-0.9 Gran % 65.9 % 42.2-75.2 Lymph % 29.0 % 20.5-51.1 [place]% 5.1 % 1.7-9.3 Comprehensive Metabolic Prof 10/09/2016 [...] mIU/L 0.50-6.00 Free T4 1.05 ng/dL 0.75-1.54 Rheumatoid Arthritis 07/10/2016 Ra Latex Turbid. <10.0 IU/mL 0.0-13.9 8 Factor ([facility]) Laboratory test 07/10/2016 Sedimentation Rate 14mm finding Laboratory test 07/10/2016 Antinuclear Antibodies, Negative 8, 9 finding Ifa CBC With Electronic 03/25/2008 White Blood Count [...] 0.50-1.40 One Over Creatinine 1.20 Cytology Non Qual Field Manager 03/04/2008 Cytology Non Qual Field Manager <SEE 14 NOTE> Complete Blood 10/22/2006 WBC [...] change was based on recommendations from the [place] [employer]. 13 Please note change in reference range effective 07 . 14 ---- RUN DATE: 03/15/08 [facility] NMI LIVE PAGE 1 RUN TIME: 1537 Specimen Inquiry RUN USER: INTERFACE -- Name: MADHURI RICE Status: REG REF Re03/04/08 Age/Sex: 77/F Unit#: [id number] Location: [facility] : 31 -- Specimen: [id number] SOUT Spec Date: 03/04/[address]: Tab [...] of this specimen. ADDENDUM Addendum #1 Entered: 03/08/08-1410 The following immunohistochemical stains were performed with appropriate controls on the cell block material: ER: Positive, 2-3+, 90% of malignant cells. TN: Positive, 1-2+, 5% of malignant cells. Fluorescent in situ hybridization studies for Her2/Arturo Gene amplification are pending and will be reported in an addendum. -- DEPARTMENT OF PATHOLOGY, [address] [place] [address] [facility] Permit #[id number] Vandana Khan M.D. Tire Shop Mechanic Dir domingo -- -- RUN DATE: 03/15/08 [facility] NMI LIVE PAGE 2 RUN TIME: 1537 Specimen Inquiry RUN USER: INTERFACE -- Name: MADHURI RICE Status: REG REF Re03/04/08 Age/Sex: 77/F Unit#: [id number] Location: [facility] : 31 -- -- CONTINUED -- ADDENDUM (Continued) Addendum Review (signature on file) JM DUONG MD 03/08/08 -- Addendum #2 Entered: 03/15/08-1307 Her2/Arturo by FISH has been performed at [facility] in [place], [place]. The testing reveals: Patient Name: MADHURI RICE Collection Date: 03/04/2008 Ordering Physician: Jm Duong M.D. Received Date: 03/09/2008 Treating Physician: Shannon Report Date: 03/12/2008 Ordering Facility: [facility] Ref #: [id number] Specimen ID #: [id number] Date of ,Sex: 1930, F Fluorescence in [...] for analysis. FISH was performed using the HandMinder HER-2 DNA Probe Kit. -- DEPARTMENT OF PATHOLOGY, [address] [place] [address] [facility] Permit #[id number] Jm Duong M.D. Director Luminita Vandana Becker jose l -- -- RUN DATE: 03/15/08 [facility] NMI LIVE PAGE 3 RUN TIME: 1537 Specimen Inquiry RUN USER: INTERFACE -- Name: MADHURI RICE Status: REG REF Re03/04/08 Age/Sex: 77/F Unit#: [id number] Location: [facility] : 31 -- -- CONTINUED -- ADDENDUM (Continued) Probe Name Detection Parameters Result ISCN PathVysion amplification of the HER-2 gene NOT AMPLIFIED nuc frederick(D17Z1,HER-2)x2 (Original [facility] report available upon request by calling Pathology at [phone]). Addendum Review (signature on file) JM DUONG MD 03/15/08 -- Initial evaluation performed by Jorgito MURRAY([facility]) 03/07/08 Final Interpretation electronically signed by: JM DUONG MD 03/07/08 09 47 -- -- DEPARTMENT OF PATHOLOGY, [address] [place] [address] [facility] Permit #[id number] Jm Duong M.D. Director Melanie Becker M.D. Tire Shop Mechanic Dir jose l -- 15 SPECIMEN MARKEDLY LIPEMIC 16 SPECIMEN RAN 24 HOURS AFTER DRAW. 17 RESULT VERIFIED BY REPEAT ANALYSIS Procedures Date CPT Code Description Status Comment 02/17/2017 Mammogram Completed 07/10/2016 Colonoscopy Completed never 03/10/2011 Bone Mineral Density Test Completed 02/26/2008 Mammogram Completed 03/17/2004 25033 Nebulizer Treatment Completed Encounters Type Date Location Provider CPT E/M Dx Office Visit 08/29/2017 4:00p [place] [address] L03.319 Office Visit 06/10/2017 3:20p Main Office Bozena Lackey M.D. 04493 H60.8x3 H81.10 H91.90 Office Visit 04/29/2017 11:15a Main Office Raymond Retana-Nanci 72401 H60.8x1 H62.41 Office Visit 04/25/2017 10:40a [place] [address] H62.41 Office Visit 03/26/2017 10:00a Main Office Bozena Lackey M.D. 27891 H25.13 H35.3131 Z01.818 Z23 Office Visit 10/09/2016 11:00a [facility] Office ZOILA Yuen 15758 M25.562 M25.561 R26.2 Office Visit 09/11/2016 10:00a [facility] ZOILA Yuen 28306 M25.562 M25.561 R26.2 Office Visit 07/10/2016 1:00p [facility] ZOILA Yuen 24254 M25.562 M25.561 R26.2 Office Visit 10/27/2012 5:30p Main Office Raymond Kim-C 63277 386.10 Office Visit 05/16/2011 9:40a Main Office Nikole Everett M.D. 05039 682.8 Office Visit 05/13/2011 9:40a [facility] Office Nikole Everett M.D. 29243 682.8 Office Visit 05/10/2011 8:40a Main Office Nikole Everett M.D. 63263 682.8 174.9 Office Visit 04/24/2011 1:10p Main Office Jamil Leonardo M.D. 43766 386.10 Office Visit 07/02/2010 10:40a [facility] Office Nikole Everett M.D. 19354 382.9 380.22 Office Visit 01/17/2010 9:45a [facility] Office ZOILA Blandon 99286 465.9 Office Visit 02/24/2008 9:00a Main Office ZOILA Blandon 39135 611.72 Office Visit 10/22/2006 8:15p Main Office Mery McfarlandLuis farrell 51311 078.81 780.79 Office Visit 03/24/2006 2:10p Main Office Andrew Wood M.D. 99157 465.9 461.9 466.0 Office Visit 12/11/2005 3:20p Main Office Andrew Wood M.D. 62179 465.9 461.9 466.0 Office Visit 06/15/2005 11:15a Main Office Lori HarrisonLuis 88370 466.0 Office Visit 07/27/2004 10:10a Main Office Andrew Wood M.D. 25526 466.0 465.9 Office Visit 03/26/2004 12:10p Main Office Jamil Leonardo M.D. 36848 486 Office Visit 03/17/2004 10:00a Main Office Je VoZOILA grijalva 44567 466.0 382.9 Office Visit 03/09/2004 11:10a Main Office Jamil Leonardo M.D. 62375 465.9 Office Visit 12/01/2003 10:45a Northeast Office ZOILA Blandon 36561 719.47 Office Visit 12/24/2000 9:10a [facility] Office Phoenix Jaimes M.D. 63354 Office Visit 04/10/2000 11:40a [facility] Office Andrew Wood M.D. 02288 Office Visit 04/03/2000 7:45p Main Office Freda Mckenna, ZOILA 57549 Office Visit 03/29/2000 9:45a Main Office Mery JohnsonLuis holt 84492 Plan of Care 10/01/2017 - Bozena Lackey M.D.Z01.818 Encounter for other preprocedural examinationNew Labs:CBC Electronic (Fma New)Basic Metabolic-ALL Lab Co'sPT And PTTUa - Micro (a)Culture UrineComments:EKG is NSR. no acute ST-T changes, no q 's. if all labs are normal, you are cleared for surgery.Stop all supplements and vitamins 10 days prior to surgery.Start a bowel regimen of miralax or mom along with a stool softener with first pain pill.M25.561 Pain in right kneeM25.461 Effusion, right kneeM17.0 Bilateral primary osteoarthritis of kneeAllNew Medication:No Active MedicationsComments:~B_~U_Medication Management~ b_~u_ Patient Understands medications she's taking? Yes No Are there Barriers to Adherence? Yes No Has the patient been asked about herbal supplements and therapies, and OTC meds? Yes No
--- OUTSIDE RECORDS SUMMARY | 2017-10-30 06:56 | XMS REPORT ---
:1930 External Reference #:[id number] Author Organization [facility] Address [address] [place] [address] Phone [phone] Care Team Providers Name Role Phone Roxana Girard Primary Care Physician Unavailable Payers Type Date Identification Numbers Payment Provider Subscriber Medicare Primary Policy Number: [id number] Medicare - NGS Madhuri Sandhu PayID: [id number] [address] [place] [address] Medicare Primary Policy Number: [id number] Dme-Specialty Claims [facility] Madhuri Sandhu PayID: [id number] [address] [place] [address] Commercial Policy Number: [id number] [place] Plan Madhuri Sandhu Group Name: [address] PayID: [id number] [place] [address] Problems Date Description Provider Status Onset: Vertigo Active Onset: Headache Active Onset: Carcinoma of breast Active Onset: Knee pain Active Note: bilateral Onset: 08/27/2016 Nuclear senile cataract Poncho Ray M.D. 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 Active macular degeneration Onset: 03/05/2017 Age-related nonexudative macular Poncho Ray M.D. Active degeneration of left eye Onset: 03/05/2017 Age-related nonexudative macular Poncho Ray M.D. Active degeneration of right eye Onset: 05/06/2017 Presence of intraocular lens Poncho Ray M.D. 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 018 times daily Ketorolac Hx Solution 0.4% 5ml 1 drop Poncho Tromethamine 018 - left Zablocki, eye M.D. 018 once a day Prednisolone Hx Suspension 1% 15unit 1 drop Poncho Acetate 018 - s left Zablocki, eye M.D. 018 once a day No Active Hx Unknown Medications 017 - 018 Results Description No Information Procedures Date CPT Code Description Status 05/13/2017 601 [place] Completed 04/21/2017 89873 Extracapsular Cataract Extraction W/Intraocular Lens Completed 04/14/2017 48849 Extracapsular Cataract Extraction W/Intraocular Lens Completed 04/09/2017 42894 Ophthalmic Biometry Completed 04/09/2017 05401 Ophthalmic Biometry Completed 03/05/2017 90414 Scanning Computerized Opthalmic Diagnostic Posterior Completed Seg Retina 03/05/2017 82510 Est Patient Comprehensive Exam Completed 08/27/2016 86854 New Patient Comprehensive Exam Completed Encounters Type Date Location Provider CPT E/M Dx Office Visit 04/09/2017 10:30a Jamil Santana MD, Poncho Ray, [address] H25.11 juan Ross H35.3111 H25.12 H35.3122 Plan of Care 10/02/2017 - Poncho Ray M.D.H35.3111 Nexdtve age-related mclr degn, right eye, early dry stageComments:Smoking can increase the risk of developing or worsening any eye related disease, as well as affect your overall health. If you are a smoker, we strongly recommend that you quit.If you are not a smoker , we strongly recommend that you do not start. You have Macular Degeneration. Check your Amsler Grid, with each eye separately, and take the AREDS II formula vitamins. If you notice any changes in your vision, please call the office and schedule an appointment to see any of the doctors here.Follow up:1 year, dfe, oct mac You can expect to have your eyes dilated at your next visit. If Dr. Ray orders any additional testing, it may require extra time. We recommend that you bring sunglasses, as dilation drops often make you light sensitive until they wear off. We always recommend you bring someone to drive you home if you are uncomfortable driving with your eyes dilated. If you have any questions before your next visit, feel free to call our office at .P31.7446 Nexdtve age-related mclr degn, left eye, intermed dry stageComments:You have Macular Degeneration. Check your Amsler Grid, with each eye separately, and take the AREDS II formula vitamins. If you notice any changes in your vision, please call the office and schedule anappointment to see any of the doctors here.Z96.1 Presence of intraocular lensComments:The artificial lens implants in both eyes appear to be stable at this time.
--- OUTSIDE RECORDS SUMMARY | 2017-10-30 06:56 | XMS REPORT ---
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 Active Onset: 05/10/2011 Cellulitis Nikole Everett M.D. Active Onset: 04/24/2011 Peripheral vertigo Jamil Leonardo M.D. Active Family History Date Family Member(s) Problem(s) Comments Father 60's dt liver cirrhosis. Mother late 60's [place]. First Daughter Lanny. healthy. [facility]. Second Daughter Andi. healthy. [place]. Social History Type Date Description Comments Marital Status Patient is Living Situation Patient lives alone. 2 daughters Chelita marr. 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 Cigarette Use Never Smoked Cigarettes ETOH Use Denies alcohol use Smoking Patient has never smoked Seat Belt/Car Seat Always uses a seat belt Allergies, Adverse Reactions, Alerts Date Description Reaction Status Severity Comments 04/24/2011 NKDA active Medications Medication Date Status Form Strength Qnty SIG Indications Ordering Provider No Active 10/01/ Active Unknown Medications 2018 No Active 08/29/ Hx Unknown Medications 2018 - 2017 Keflex 08/29/ Hx Capsules 500mg 20caps 1 by mouth L03.319 Sylvia 2018 - twice a day Inez 10/01/ Alvin, 2018 BRIMMER BLOCKER No Active 06/10/ Hx Unknown Medications 2018 - 2017 Ciprodex 06/10/ Hx Suspension 0.3-0.1% 7.500m 4 drops H60.8x3 Bozena Saucedo 2018 - l both ears Darya, 08/29/ twice daily M.D. 2018 x 7days Neomycin/Poly 04/25/ Hx Suspension 3.5-98805- 10ml 2-4 drops H62.41 Jamil vaughnin/Hydroco 2018 - 1 in l ear Lorna aguilerae 06/10/ four times MD jorgito (Otic) 2018 a day No Active 07/10/ Hx Unknown Medications 2016 - 2017 Meclizine HCL 10/27/ Hx Tablets 12.5mg 30tabs take 1-2 386.10 Lori 2012 - tid prn for Christy, 07/09/ dizziness Afnp-C 2016 Cephalexin 05/12/ Hx Tablets 500mg 28tabs 1 po qid 682.8 Nikole Schumacher 2011 - for 7 days Marguerite, 10/27/ M.D. 2012 Antivert 04/24/ Hx Tablets 12.5mg 30tabs 1 po tid Jamil Huynh 2011 - prn for Breiman, 05/09/ vertigo M.D. 2011 Amoxicillin 07/02/ Hx Capsules 500mg 21caps 1 po tid 382.9 Nikole Schumacher 2010 - for 7 days Marguerite, 04/24/ M.D. 2011 Ciprodex 07/02/ Hx Suspension 0.3-0.1% 7.500m 4 gtts bid 380.22 Nikole Schumacher 2010 - l for 7 days, , 04/24/ left ear M.D. 2011 Antivert 10/22/ Hx Tablets 12.5mg 30tabs 1-2 PO tid Mery 2007 - prn [place], 11/01/ Dizziness Afnp-C 2006 Biaxin 06/15/ Hx Tablets 500mg 20tabs 1 PO bid Lori 2005 - X10 Days Christy, 06/25/ Afnp-C 2006 Biaxin 07/27/ Hx Tablets 500mg 20tabs 1 po bid Andrew TJonel 2005 - Midaimee, 10/22/ M.D. 2007 Biaxin XL 03/17/ Hx 500mg 20unit Je 2005 - s Bipin, 03/26/ COOK SHORT ORDER 2005 One P.O. bid For Ten Days Albuterol 03/17/ Hx 1units 2 puffs qid Je Inhaler 2005 - prn Bipin, 07/27/ COOK SHORT ORDER 2005 Robitussin ac 03/09/ Hx 4Oz 1-2 tsp po Andrew T. 2004 - q4h prn Israel, 10/22/ cough M.D. 2007 Handicap 12/21/ Hx needed due Freda Parking 2003 - to: ankle Bala, Permit 03/09/ sprain COOK SHORT ORDER 2003 9\\23\\04 Biaxin 01/06/ Hx Tabs 500mg 20tabs 1 PO bid Phoenix A. 2001 - Darlow, 01/16/ M.D. 2000 Augmentin 12/24/ Hx 500mg 20unit 1 PO bid Phoenix A. 2001 - s Darlow, 01/03/ M.D. 2000 Duratuss GP 12/24/ Hx 20unit 1 PO Q 12 Phoenix A. 2001 - s HR prn Head Darlow, 01/03/ Congestion M.D. 2000 Tequin 04/10/ Hx 400mg 10unit 1 PO qd Andrew T. 2000 - s Midura, 12/24/ M.D. 2000 Duratuss 04/03/ Hx 8units 1 PO bid Freda 2000 - prn Head Bala, 04/08/ Congestion COOK SHORT ORDER 2000 Vioxx 04/03/ Hx 25mg 12unit 1 PO qd Freda 2000 - s Bala, 04/10/ COOK SHORT ORDER 2000 Zithromax 03/29/ Hx 250mg 6units 2 Tabs Day Mery 2000 - 1 Pallavi, 04/03/ Afnp-C 2000 1 Tab qd Days 2 Thru 5 Femara / Hx Tablets 2.5mg 30tabs take one Bael, 0000 - tablet by Doron 07/09/ mouth one 2017 time daily Augmentin / Hx Tablets 20tabs 1 po qd Unknown 0000 - 2011 Immunizations CPT Code Status Date Vaccine Lot # [id number] Given 03/26/2017 Tdap Tetanus, W Pertussis [id number] Given 12/22/2009 DO Not Use Split Influenza Virus Vaccine Vital Signs Date Vital Result Comment 10/28/2017 BP Systolic 110 mmHg BP Diastolic 82 mmHg Heart Rate 80 /min Body Temperature 97.7 F Respiratory Rate 18 /min Height 66 inches 5'6" Weight 151.00 lb BMI (Body Mass Index) 24.4 kg/m2 10/01/2017 BP Systolic 126 mmHg BP Diastolic [...] Test Date Test Result H/L Range Note Type & Screen 10/17/2017 Patient Blood Type A Positive 1 Antibody Screen NEGATIVE 1 PT And PTT 10/01/2017 Inr 1.0 0.8-1.2 2, 3 Prothrombin Time 10.7 sec 9.1-12.0 2 aPTT 28 sec 24-33 2, 4 Urine Culture Routine 10/01/2017 Urine Culture, Routine Final report 2 Result 1 See Comment: 2, 5 CBC Electronic Fma 10/01/2017 WBC 6.9 x10^3/UL 4.0-10.0 RBC 4.93 x10^6/UL 3.93-6.00 HGB 14.0 g/dL 12.0-17.0 HCT 43 % 35-50 MCV 87.2 fL 80.0-95.0 MCH 28.4 pg 25.6-32.2 MCHC 32.6 g/dL 32.2-36.0 RDW-CV 14.3 % 11.6-14.4 PLT 270 x10^3/UL 163-400 MPV 9.7 fL 9.4-12.4 Arturo# 4.73 x10^3/UL 1.56-6.13 Lymph# 1.43 x10^3/UL 1.18-3.74 Sequoyah# 0.55 x10^3/UL 0.24-0.82 Eos # 0.2 x10^3/UL 0.0-0.5 Baso # 0.04 x10^3/UL 0.01-0.08 Arturo% 68.3 % 34.0-70.0 Lymph % 20.6 % 20.0-52.0 Sequoyah% 7.9 % 5.0-12.0 Eos% 2.5 % 0.7-7.0 Baso% 0.6 % 0.1-1.2 Basic Metabolic Profile 10/01/2017 Sodium 138 mEq/L 134-149 Potassium 4.5 mEq/L 3.6-5.5 Chloride 106 mEq/L 94-112 Carbon Dioxide 25 mEq/L 21-32 Glucose 96 mg/dL 70-105 BUN 21 mg/dL 6-26 Creatinine 0.8 mg/dL 0.6-1.4 BUN/Creat Ratio 26.3 CALC 8.0-36.0 Calcium 9.5 mg/dL 8.6-10.2 GFR Non- >60 ml/min/1.73m^ >=60 GFR >60 ml/min/1.73m^ >=60 Ua - Micro (Fma) 10/01/2017 Appearance clear Color yellow Glucose, Urine (Fma/CMC/CTX) neg Bilirubin neg Ketones neg SP Grav 1.020 Blood small PH 5.0 Protein neg Urobil 0.2 Nitrite neg Leukocytes (Fma/CMC/Centrex) neg Hyaline - /Lpf Granular - /Lpf WBC (Fma,Centrex) 0-2 RBC 2-3 Mucus (Fma/CBC/Centrex) - /Lpf Epith occ /Lpf Bacteria trace /Hpf Amorphous (Fma/CMC/Centrex) - /Lpf Crystals, Fluid (Fma/CMC/CTX) - Z#Comments - CBC Auto Diff 02/19/2017 White Blood Count [...] Egfr Non- 65.3 >60 Egfr 84.0 >60 6 Laboratory test finding 02/19/2017 Vitamin D Total 37.9 ng/mL 20-50 25(Oh) Lyme AB/Western Blot 10/09/2016 Lyme IgG/IgM Ab <0.91 ISR 0.00-0.90 7, 8 Reflex Lyme Disease Ab, Quant, IgM <0.80 index 0.00-0.79 7, 9 Ehrlichiosis Panel 10/09/2016 E. chaffeensis (HME) IgG Titer Negative Neg :<1:64 7 E. chaffeensis (HME) IgM Titer Negative Neg:<1:20 7, 10 Hge IgG Titer Negative Neg:<1:64 7, 11 Hge IgM Titer Negative Neg:<1:20 7, 12 Complete Blood Count 10/09/2016 WBC 4.7 x10^3/UL 3.6-9.6 RBC 5.22 x10^6/UL 3.90-5.70 HGB 15.3 g/dL 12.1-17.2 HCT 46 % 36-50 MCV 88.0 fL 82.2-97.4 MCH 29.2 pg 27.6-33.3 MCHC 33.3 g/dL 33.0-35.5 RDW 15.3 % High 11.6-13.7 PLT 267 x10^3/UL 150-400 MPV 7.2 fL Low 7.4-10.4 Gran # 3.2 x10^3/UL 1.5-7.2 Lymph# 1.3 x10^3/UL 0.7-4.9 Sequoyah# 0.2 x10^3/UL 0.1-0.9 Gran % 65.9 % 42.2-75.2 Lymph % 29.0 % 20.5-51.1 Sequoyah% 5.1 % 1.7-9.3 Comprehensive Metabolic Prof 10/09/2016 [...] 0.75-1.54 Laboratory test 07/10/2016 Antinuclear Antibodies, Negative 13, 14 finding Ifa Rheumatoid Arthritis 07/10/2016 Ra Latex Turbid. <10.0 IU/mL 0.0-13.9 13 Factor ([facility]) Laboratory test 07/10/2016 Sedimentation Rate 14mm finding CBC With Electronic 03/25/2008 White Blood Count 6.5 CUMM 4.8-10.8 15 Diff Red Cell Count 4.81 CUMM 4.2-5.4 15 Hemoglobin 14.9 g/dL 12.0-16.0 15 Hematocrit 44 % 35-47 15 Mean Corpuscular Volume 91 um3 79-97 15 Mean Corpuscular Hemoglob 31 pg 27-31 15 Mean Corpuscular HGB Cone 34 g/dL 32-36 15 Redcell Distribution WDTH 14 % 10.5-15 15 Platelet Count 221 CUMM 150-450 15 Mean Platelet Volume 10.1 um3 7.4-10.4 15 Gran % 57.8 % 38-83 15 Lymph % 33.9 % 25-47 15 Mononuclear % 6.1 % 1-9 15 Eosinophil % 1.8 % 0-6 15 Basophil % 0.4 % 0-2 15 Abs Lymphs 2.2 1.0-4.8 15 Abs Mononuclear 0.4 0-0.8 15 Absolute Neutrophil Count 3.8 1.5-7.7 15 Abs Eosinophils 0.1 0-0.6 15 Abs Basophils 0 0-0.2 15 Basic Metabolic Panel 03/25/2008 Sodium 137 mmol/L 135-145 15 Potassium 4.5 mmol/L 3.5-5.0 15 Chloride 102 mmol/L 101-111 15 Co2 (Carbon Dioxide) 27.0 mmol/L 22-32 15 Anion Gap 8.0 mmol/L 2-11 15, 16 Glucose 93 mg/dL 70-100 15, 17 BUN 14 mg/dL 6-24 15 Creatinine 0.80 mg/dL 0.50-1.40 15 One Over Creatinine 1.20 15 BUN/Creatinine Ratio 17.5 8-20 15 Calcium 10.0 mg/dL High 8.1-9.9 15, 18 Creatinine 03/09/2008 Creatinine 0.80 mg/dL 0.50-1.40 One Over Creatinine 1.20 Cytology Non Bass Fisher 03/04/2008 Cytology Non Bass Fisher <SEE 19 NOTE> Complete Blood 10/22/2006 WBC 8.1 x10\\S\\3/uL 3.6-9.6 20 Count Gran# 3.8 x10\\S\\3/uL 1.5-7.2 20 Gran% 46.4 % 42.2-75.2 20 HCT 43 % 36-50 20 HGB 14.6 g/dL 12.1-17.2 20 Lymph# 3.6 x10\\S\\3/uL 0.7-4.9 20 Lymph% 43.9 % 20.5-51.1 20 MCH 32.1 pg 27.6-33.3 20 MCV 94.6 fL 82.2-97.4 20 MCHC 33.9 g/dL 33.0-35.5 20 Mo# 0.8 x10\\S\\3/uL 0.1-0.9 20 Mo% 9.7 % High 1.7-9.3 20, 21 MPV 8.7 fL 7.4-10.4 20 PLT 279 x10\\S\\3/uL 150-400 20 RBC 4.56 x10\\S\\6/uL 3.90-5.70 20 RDW 13.7 % 11.6-13.7 20 Laboratory test finding 10/22/2006 Free T4 0.94 ng/dL 0.75-1.54 20 TSH 4.44 mIU/L 0.50-6.00 20 Comprehensive Metabolic Prof 10/22/2006 Albumin 4.0 g/dL 3.8-5.5 20 Alk. Phos. 91 U/L 30-110 20 Alt (SGPT) 29 U/L 7-35 20 Ast (Sgot) 28 U/L 5-34 20 BUN 20 mg/dL 6-26 20 Calcium 10.6 mg/dL High 8.6-10.2 20, 22 Chloride 101 mEq/L 94-112 20 Creatinine 0.9 mg/dL 0.6-1.4 20 Carbon Dioxide 27 mEq/L 21-32 20 Glucose 118 mg/dL High 70-105 20 Sodium 137 mEq/L 134-149 20 Total Bilirubin 0.6 mg/dL 0.2-1.3 20 Total Protein 7.9 g/dL 6.3-8.1 20 Potassium 4.1 mEq/L 3.6-5.5 20 Globulin 3.9 g/dL 2.0-4.8 20 A/G Ratio 1.0 Calc 0.6-2.2 20 BUN/Creat Ratio 21.6 Calc 8.0-36.0 20 CBC Electronic ([facility]) 03/17/2004 WBC 9.5 3.6-9.6 Lymphocytes 22.5 % [...] 150-400 Mean Platelet Volume 7.5 7.4-10.4 1 PAIN IN RIGHT KNEE, EFFUSION, RIGHT KNEE, BILATERA 2 1pour off plasma frozen 3 Reference interval is for non-anticoagulated patients. Suggested INR therapeutic range for Vitamin K antagonist therapy: Standard Dose (moderate intensity therapeutic range): 2.0 - 3.0 Higher intensity therapeutic range 2.5 - 3.5 4 This test has not been validated for monitoring unfractionated heparin therapy. aPTT-based therapeutic ranges for unfractionated heparin therapy have not been established. For general guidelines on Heparin monitoring, refer to the [facility] Directory of Services. 5 Culture shows less than 10,000 colony forming units of bacteria per milliliter of urine. This colony count is not generally considered to be clinically significant. 6 Because ethnic data is not always readily [...] 15-29 5 Kidney failure <15 (or dialysis) 7 1sst 8 Negative <0.91 Equivocal 0.91 - 1.09 Positive >1.09 9 Negative <0.80 Equivocal 0.80 - 1.19 Positive >1.19 IgM levels may peak at 3-6 weeks post infection, then gradually decline. 10 IgG titers if 1:64 or greater indicate exposure or acute and convalescent samples showing a four-fold increase, and/or the presence of IgM indicate recent or current infection. 11 HGE IgG levels are detectable 7 to 10 days post infection and persist approximately one year. 12 Due to a reagent backorder, this test was performed using a different assay. The reference interval for this alternate assay is: Negative <1:64 Positive 1:64 or greater IgM levels usually rise 3 to 5 days post infection and fall to normal levels in approximately 30 to 60 days. 13 1 sst 14 Negative <1:80 Borderline 1:80 Positive >1:80 15 ASA 03/31/08 16 Anion gap measurement may be of limited value in the presence of any alkalosis, especially in a combined acid base disorder. . 17 Note change in reference range as of 10/29/07. The change was based on recommendations from the [place] [employer]. 18 Please note change in reference range effective 07 . 19 ---- RUN DATE: 03/15/08 [facility] NMI LIVE PAGE 1 RUN TIME: 1537 Specimen Inquiry RUN USER: INTERFACE -- Name: MADHURI RICE Status: REG REF Re03/04/08 Age/Sex: 77/F Unit#: [id number] Location: [facility]. : 31 -- Specimen: [id number] [id number] Spec Date: 03/04/[address]: Tab frank MD Spec Type: CYTOLOGY Received: 03/07/089917 Copies to: Phoenix felton MD SOURCE FINE [...] of this specimen. ADDENDUM Addendum #1 Entered: 03/08/08 The following immunohistochemical stains were performed with appropriate controls on the cell block material: ER: Positive, 2-3+, 90% of malignant cells. GA: Positive, 1-2+, 5% of malignant cells. Fluorescent in situ hybridization studies for Her2/Arturo Gene amplification are pending and will be reported in an addendum. -- DEPARTMENT OF PATHOLOGY, [address] [place] [address] [facility] Permit #[id number] Vandana Khan M.D. Marketing Services Vice President Dir jose l -- -- RUN DATE: 03/15/08 [facility] NMI LIVE PAGE 2 RUN TIME: 1537 Specimen Inquiry RUN USER: INTERFACE -- Name: MADHURI RICE Maggie Status: REG REF Re03/04/08 Age/Sex: 77/F Unit#: [id number] Location: [facility] : 31 -- -- CONTINUED -- ADDENDUM (Continued) Addendum Review (signature on file) JM DUONG MD 03/08/08 -- Addendum #2 Entered: 03/15/08-1307 Her2/Arturo by FISH has been performed at [facility] in [place], [place]. The testing reveals: Patient Name: MADHURI RICE Collection Date: 03/04/2008 Ordering Physician: Jm Duong M.D. Received Date: 03/09/2008 Treating Physician: Shannon Report Date: 03/12/2008 Ordering Facility: [facility] Ref #: [id number] Specimen ID #: [id number] Date of ,Sex: 1930, F Fluorescence in [...] for analysis. FISH was performed using the [employer] | [employer]iz[employer] HER-2 DNA Probe Kit. -- DEPARTMENT OF PATHOLOGY, [address] [place] [address] [facility] Permit #[id number] Vandana Khan M.D. Marketing Services Vice President Dir jose l -- -- RUN DATE: 03/15/08 [facility] NMI LIVE PAGE 3 RUN TIME: 1537 Specimen Inquiry RUN USER: INTERFACE -- Name: MADHURI RICE Status: REG REF Re03/04/08 Age/Sex: 77/F Unit#: [id number] Location: [facility] : 31 -- -- CONTINUED -- ADDENDUM (Continued) Probe Name Detection Parameters Result ISCN PathVysion amplification of the HER-2 gene NOT AMPLIFIED nuc frederick(D17Z1,HER-2)x2 (Original [facility] report available upon request by calling Pathology at [phone]). Addendum Review (signature on file) JM DUONG MD 03/15/08 -- Initial evaluation performed by Jorgito MURRAY([facility]) 03/07/08 Final Interpretation electronically signed by: JM DUONG MD 03/07/08 09 47 -- -- DEPARTMENT OF PATHOLOGY, [address] [place] [address] [facility] Permit #[id number] Jm Duong M.D. Director Melanie Becker M.D. Marketing Services Vice President Dir jose l -- 20 SPECIMEN MARKEDLY LIPEMIC 21 SPECIMEN RAN 24 HOURS AFTER DRAW. 22 RESULT VERIFIED BY REPEAT ANALYSIS Procedures Date CPT Code Description Status Comment 10/01/2017 83303 Electrocardiogram Complete Completed 02/17/2017 Mammogram Completed 07/10/2016 Colonoscopy Completed never 03/10/2011 Bone Mineral Density Test Completed 02/26/2008 Mammogram Completed 03/17/2004 81534 Nebulizer Treatment Completed Encounters Type Date Location Provider CPT E/M Dx Office Visit 10/01/2017 10:00a Main Office Bozena Lackey M.D. 21417 Z01.818 M25.561 M25.461 M17.0 Office Visit 08/29/2017 4:00p [place] [address] L03.319 Office Visit 06/10/2017 3:20p Main Office Bozena Lackey M.D. 45300 H60.8x3 H81.10 H91.90 Office Visit 04/29/2017 11:15a Main Office Raymond Retana-C 73527 H60.8x1 H62.41 Office Visit 04/25/2017 10:40a [place] [address] H62.41 Office Visit 03/26/2017 10:00a Main Office Bozena Lackey M.D. 05082 H25.13 H35.3131 Z01.818 Z23 Office Visit 10/09/2016 11:00a [facility] Office ZOILA Yuen 92196 M25.562 M25.561 R26.2 Office Visit 09/11/2016 10:00a [facility] Office ZOILA Yuen 90998 M25.562 M25.561 R26.2 Office Visit 07/10/2016 1:00p [facility] Office ZOILA Yuen 87534 M25.562 M25.561 R26.2 Office Visit 10/27/2012 5:30p Main Office Lori ChristyRaymond-C 78685 386.10 Office Visit 05/16/2011 9:40a Main Office Nikole Everett M.D. 71944 682.8 Office Visit 05/13/2011 9:40a [facility] Office Nikole Everett M.D. 87119 682.8 Office Visit 05/10/2011 8:40a Main Office Nikole Everett M.D. 33281 682.8 174.9 Office Visit 04/24/2011 1:10p Main Office Jamil Leonardo M.D. 62753 386.10 Office Visit 07/02/2010 10:40a [facility] Office Nikole Everett M.D. 39416 382.9 380.22 Office Visit 01/17/2010 9:45a [facility] Office Freda Mckenna [facility] 71895 465.9 Office Visit 02/24/2008 9:00a Main Office Freda Mckenna [facility] 85191 611.72 Office Visit 10/22/2006 8:15p Main Office Luis Retana 32824 078.81 780.79 Office Visit 03/24/2006 2:10p Main Office Andrew Wood M.D. 00667 465.9 461.9 466.0 Office Visit 12/11/2005 3:20p Main Office Andrew Wood M.D. 68771 465.9 461.9 466.0 Office Visit 06/15/2005 11:15a [place] [address] 466.0 Office Visit 07/27/2004 10:10a Main Office Andrew Wood M.D. 81701 466.0 465.9 Office Visit 03/26/2004 12:10p Main Office Jamil Leonardo M.D. 86507 486 Office Visit 03/17/2004 10:00a Main Office Je Voss COOK SHORT ORDER 17550 466.0 382.9 Office Visit 03/09/2004 11:10a Main Office Jamil Leonardo M.D. 82084 465.9 Office Visit 12/01/2003 10:45a [facility] Office ZOILA Blandon 27696 719.47 Office Visit 12/24/2000 9:10a [facility] Office Phoenix Jaimes M.D. 42588 Office Visit 04/10/2000 11:40a [facility] Office Andrew Wood M.D. 33608 Office Visit 04/03/2000 7:45p Main Office ZOILA Blandon 88062 Office Visit 03/29/2000 9:45a Main Office Carrie RetanaC 38834 Plan of Care 10/28/2017 - Sylvia Esquivel, NPH92.03 Otalgia, bilateralComments:generally improving, no infectious appearance. Pt requested note be sent to MD Vern.AllComments:~B_~U_Medication Management~b_~u_ Patient Understands medications she's taking? Yes No Are there Barriers to Adherence? Yes No Has the patient been asked about herbal supplements and therapies, and OTC meds? Yes No ~B_~U_Care Plan~b_~u_1. Patient has been queried about patient's goals/preferences and functional/lifestyle goals at relevant visits. If relevant, describe: na2. Treatment goals as explained to the patient: above3. Are there barriers to meeting treatment goals? Yes No If Yes, please describe:4. Self-Management goals as described to the patient: Yes NoFollow up:As always, we strongly encourage a healthy diet and making physical activity a part of your every day life. If you have questions about how or where to start, please contact the office.
[2017-10-30] MEDS ORDERED: Tranexamic Acid 1,000 MG/10 ML SDV IV ONE (07:06)
[2017-10-30] MEDS ORDERED: ceFAZolin 2 GM PREMIX (*) 2 GM/50 ML BAG IVPB ONE (07:06)
[2017-10-30] MEDS ORDERED: Sodium Citrate/Citric Acid* 15 ML UDC ONE (07:06)
[2017-10-30] MEDS ORDERED: Tranexamic Acid 1,000 MG/10 ML 1,000 MG in NS 0.9% 100 ML* 100 ML IV ONE (07:45)
[2017-10-30] MEDS ORDERED: Midazolam* 1 MG/ML 2 ML VIAL (2 MG) ONE ×3 (08:00→11:05)
[2017-10-30] MEDS ORDERED: fentaNYL* 50 MCG/ML 2 ML VIAL (100 MCG VIAL) ONE ×2 (08:00→11:24)
[2017-10-30] MEDS ORDERED: ROPIVACAINE 5 MG/ML 30 ML BTL (0.5%) ONE ×2 (08:04→11:02)
[2017-10-30] MEDS ORDERED: Ropivacaine (OR use only) 2 MG/ML 10 ML ONE (08:27)
[2017-10-30] MEDS ORDERED: Bupivacaine-MPF SPINAL* 7.5 MG/ML - 2ML AMP ONE (09:36)
[2017-10-30] MEDS ORDERED: Propofol* 10 MG/ML 20 ML BTL IV PUSH ONE (11:29)
[2017-10-30] MEDS ORDERED: Ondansetron ODT TAB* 4 MG PO PRN (12:04)
[2017-10-30] MEDS ORDERED: Bisacodyl SUPP* 10 MG SUPP PR PRN (12:04)
[2017-10-30] MEDS ORDERED: Magnesium Hydroxide LIQ* 30 ML UDC PO PRN (12:04)
[2017-10-30] MEDS ORDERED: Ondansetron INJ* 2 MG/ML VIAL IV PRN (12:04)
[2017-10-30] MEDS ORDERED: Polyethylene Glycol 3350* 17 GM PACKET PO PRN (12:04)
[2017-10-30] MEDS ORDERED: oxyCODONE/Acetamin 5/325 MG* TAB PO PRN (12:04)
[2017-10-30] MEDS ORDERED: diPHENhydraMINE IV* 50 MG/ML 1 ml VIAL (BENADRYL) IV PRN (12:04)
[2017-10-30] MEDS ORDERED: Cyclobenzaprine TAB* 10 MG PO PRN (12:04)
[2017-10-30] MEDS ORDERED: Naloxone* 0.4 MG/ML 1 ML VIAL IV PRN (12:10)
[2017-10-30] MEDS ORDERED: fentaNYL* 50 MCG/ML 2 ML VIAL (100 MCG VIAL) IV PRN (12:10)
--- NOTE | 2017-10-30 12:49 | RAD ---
HISTORY: s/p right TKA COMPARISONS: September 15, 2017 VIEWS: 2 , Frontal and lateral views of the right knee FINDINGS: BONE DENSITY: Normal. BONES: The patient is status post right knee arthroplasty. There is no hardware failure or osteolysis. JOINTS: The patient is status post right knee arthroplasty ALIGNMENT: There is no dislocation. SOFT TISSUES: Unremarkable. OTHER FINDINGS: None. IMPRESSION: STATUS POST RIGHT KNEE ARTHROPLASTY
[2017-10-30] MEDS: Acetaminophen TAB* 325 MG PO SCH ×2 (13:14→21:06)
[2017-10-30] MEDS: oxyCODONE TAB* 5 MG TAB PO PRN ×2 (14:36→20:52)
--- NOTE | 2017-10-30 16:28 | PN ---
Progress Note - Progress Note Date of Service: 10/30/17 Note: patient OOB to chair; pain controlled with current pain meds; denies SOB/chest pain; dressing c/d/i, 2+ DP pulse, intact sensation, able to dorsi flex/plantar flex
[2017-10-30] MEDS ORDERED: Warfarin TAB(*) 6 MG PO ONE (17:00)
[2017-10-30] MEDS: oxyCODONE/Acetamin 5/325 MG* TAB PO PRN ×2 (17:36→23:46)
[2017-10-30] MEDS: ceFAZolin 1 GM ADVAN(*) 1 GM in NS 0.9% 50 ML* 50 ML IVPB SCH (17:37)
[2017-10-30] MEDS: Docusate CAP* 100 MG PO SCH (20:52)
[2017-10-30] MEDS: Morphine INJ* 2 MG/ML 1 ML SYRINGE (TWO MG - NEW SYRINGE VERSION) IV PRN (20:52)
[2017-10-30] MEDS: Magnesium Hydroxide LIQ* 30 ML UDC PO SCH (21:06)
[2017-10-31] MEDS: ceFAZolin 1 GM ADVAN(*) 1 GM in NS 0.9% 50 ML* 50 ML IVPB SCH ×2 (01:48→09:35)
[2017-10-31] MEDS: oxyCODONE TAB* 5 MG TAB PO PRN ×4 (01:54→17:38)
[2017-10-31] MEDS: oxyCODONE/Acetamin 5/325 MG* TAB PO PRN (04:31)
[2017-10-31] MEDS: Acetaminophen TAB* 325 MG PO SCH ×3 (05:01→22:50)
[2017-10-31 07:03] LABS: Hematocrit 36 % (35-47); Hemoglobin 12.3 g/dl (12.0-16.0); Mean Platelet Volume 7.8 um3 (7.4-10.4); Platelet Count 194 10^3/ul (150-450)
[2017-10-31 07:06] LABS: INR 1.08 (0.77-1.02)
[2017-10-31 07:17] LABS: EGFR Non-African American 69.2 (>60)
[2017-10-31] MEDS: Docusate CAP* 100 MG PO SCH ×2 (08:08→22:51)
[2017-10-31] MEDS: Magnesium Hydroxide LIQ* 30 ML UDC PO SCH ×2 (08:08→22:51)
--- NOTE | 2017-10-31 08:19 | OP ---
DATE OF OPERATION: 10/30/17 - ROOM #335 DATE OF : 31 ATTENDING SURGEON: Lidya Porras MD SCHOOL OFFICE ASSISTANT: FRANCES Ha. Ms. Graham did help throughout the procedure with preparation of the leg, wound retraction, manipulation of the knee, and wound closure. ANESTHESIOLOGIST: Dr. Andrade ANESTHESIA: Spinal. PRE-OP DIAGNOSIS: Severe end-stage degenerative osteoarthritis of the right knee joint. POST-OP DIAGNOSIS: Severe end-stage degenerative osteoarthritis of the right knee joint. OPERATIVE PROCEDURE: Right total knee arthroplasty. BRIEF HISTORY/INDICATION: Ms. Sandhu is an 86-year-old female with years of increasingly severe right knee pain. She failed conservative treatment with the anti-inflammatories, pain medication, intraarticular injections, and physical therapy. Radiographs showed severe end-stage arthritis. Due to continued pain and decreased quality of life, she elected to undergo right total knee arthroplasty. Informed consent was obtained from the patient. She understood the risks of surgery included, but were not limited to, bleeding, infection, damage to nearby structures, continued pain, need for further surgery , intraoperative fracture, nerve palsy, hardware failure or loosening, knee stiffness, loss of motion, stroke, heart attack, blood clot, and . She wished to proceed. INTRAOPERATIVE FINDINGS: Intraoperatively, the patient was noted to have severe end-stage arthritis. She had simply loss of cartilage in all 3 compartments. She had extensive osteophyte formation. COMPLICATIONS: None. TOURNIQUET TIME: 45 minutes. ESTIMATED BLOOD LOSS: 200 cc. SPECIMEN: Bone and cartilage from the right knee joint sent to pathology. HARDWARE USED: This is cemented [employer] total knee arthroplasty hardware. For the cemented two packages of Simplex bone cement. For the femur, a size 5 right posterior stabilized region femoral component. For the tibia, a size 2 right tibial base plate jason II. For the insert, a 9-mm posterior stabilized articular insert, size 3-4 and for the patella, a 32-mm 3-peg all poly patella with 7.5 thickness. DESCRIPTION OF PROCEDURE: Ms. Sandhu was identified in the preanesthesia unit. Her right lower extremity was marked as the correct operative side. Informed consent was signed and placed in the chart. The patient was taken to the operating room and placed under spinal anesthesia. A Shelby catheter was placed. Tourniquet was placed on the right thigh. Right lower extremity was prepped and draped in the usual sterile fashion. Preop time-out was made to correctly identify the patient, side, and site. Appropriate perioperative antibiotics were given within 1 hour of incision. Tourniquet was inflated and total tourniquet time for this procedure was 45 minutes. A midline incision was made with a 10-blade. This was carried down to the extensor mechanism. A new 10-blade was used to make a standard medial parapatellar arthrotomy. The patella was subluxed laterally. Electrocautery was used to subperiosteally elevate the soft tissue off the superomedial tibia to the mid sagittal plane. The knee was flexed up. The anterior horn of the lateral meniscus and ACL were sharply released. A drill was used to enter the distal femur. Intramedullary distal femoral cutting guide was pinned on the distal femur. Oscillating saw was used to make the appropriate distal femoral cut. Next, the external rotation guide was pinned on the distal femur. Distal femur was sized to a size 5. Size 5 multi-cutting jig was pinned on the distal femur. Oscillating saw was used to make the appropriate 4 chamfer cuts. The PCL was completely released. The tibia was subluxed anteriorly. Extramedullary tibial cutting guide was pinned on the proximal tibia. Proximal tibial cut was made with an oscillating saw perpendicular to the mechanical axis of the tibia. The bone was carefully removed. The knee was brought out into full extension. Spacer block had good fit. There was medial and lateral ligamentous balancing. Flexion and extension gaps were well balanced. The knee was flexed up. Lamina asic design engineer was placed both medially and laterally. Any remaining meniscus was carefully removed using electro-cautery. Curved osteotome was used to remove any remaining osteophytes. Tibial tray and drop lianne were placed and confirmed a satisfactory tibial cut once again. A size 5 narrow right femoral trial was impacted onto the distal femur. This had excellent fit and stability. The box for the posterior stabilized implant was prepared using a reamer and box cut osteotome. A size 3 tibial tray trial with a 9-mm insert trial was placed and the knee was taken through a range of motion. The knee had full extension to 130 degrees of flexion. There was satisfactory patellofemoral tracking. The patella was everted. A 7 mm of patellar bone and cartilage was carefully removed using an oscillating saw. Patella was sized to a size 32. The 3 peg holes were drilled through the size 32 guide. A 32 trial patella was placed, the knee was taken through a range of motion. There was satisfactory patellofemoral tracking. All trials were removed. The tibia was subluxed anteriorly and sized to a size 3. Proximal tibia was prepared using a size 3 keel punch. All bony cut surfaces were copiously irrigated with sterile saline and dried. Final implants were cemented into place starting with the tibia followed by the femur and last patella. A 9 mm insert trial was placed while the knee was brought out into full extension. Tourniquet was turned down at 45 minutes. The knee was irrigated with sterile saline. Electrocautery was used to obtain meticulous hemostasis. Once the cement had fully cured, the insert trial was removed. Any excess cement was removed from around the capsule and hardware. The 9-mm insert trial size 3-4 was the final insert chosen and this was locked into position on the tibial tray. Stability of the insert was checked and rechecked and noted to be stable. The extensor mechanism was closed using interrupted #1 Vicryl. The rest of the incision was closed in a layered fashion using 0 and 2-0 Vicryl. The skin was closed using running 3-0 nylon suture. Sterile Xeroform, 4x4s, and Webril were used to cover the incision. The Eladio wrap and cold pack were placed over this. The patient's anesthesia was reversed without difficulty. She was taken to the PACU in stable condition. Intended weightbearing will be weightbearing as tolerated. Intended DVT prophylaxis will be Coumadin with a Lovenox bridge. [id number]/[facility] #: [id number] [facility] HOSPITALJade
[2017-10-31] MEDS: Morphine INJ* 2 MG/ML 1 ML SYRINGE (TWO MG - NEW SYRINGE VERSION) IV PRN (09:35)
[2017-10-31] MEDS: Enoxaparin(*) 30 MG/0.3 ML SYR SUBCUT SCH (12:19)
--- NOTE | 2017-10-31 14:44 | PN ---
Progress Note - Progress Note Date of Service: 10/31/17 SOAP: Subjective: [Pt was seen this am sitting up in chair. She states she is having some pain in her knee and is going to take some percocet as soon as the nurse returns. She states she is otherwise doing well. She denies any chest pain, SOB, nausea or vomiting. ] Objective: [General: A&O x3. NAD. MSK, RLE: Dressing is c/d/i. +df/pf. calf is soft and non tender to palpation. Full sensation intact to light touch. 2+ DP pulse. ] Vital Signs Temp 97.7 F 10/31/17 11:44 Pulse 75 10/31/17 12:29 Resp 16 10/31/17 11:44 BP 135/73 10/31/17 11:44 Pulse Ox 100 10/31/17 12:29 Intake & Output 10/30/17 10/31/17 10/31/17 18:59 06:59 18:59 Intake Total 1900 1894 1558 Output Total 170 600 200 Balance 1730 1294 1358 Weight 148 lb Intake: IV Fluids 4490 088 0430 ABX - CEFAZOLIN 57 LR 1900 980 991 IVPB 54 ABX - CEFAZOLIN 54 Oral 860 510 Output: Urine 450 200 Shelby 150 150 Residual 20 Shelby 16 Fr 20 Assessment: [POD 1 RTKA ] Plan: [Continue with pain medication Lovenox, warfarin 8mg Continue with PT/OT Set up for subacute rehab]
[2017-10-31] MEDS ORDERED: Warfarin TAB(*) 4 MG PO SCH (17:00)
[2017-11-01] MEDS: oxyCODONE TAB* 5 MG TAB PO PRN ×3 (05:15→16:59)
[2017-11-01] MEDS: Acetaminophen TAB* 325 MG PO SCH ×3 (06:14→21:15)
[2017-11-01 06:30] LABS: Hematocrit 34 % (35-47); Hemoglobin 11.6 g/dl (12.0-16.0); Mean Platelet Volume 7.8 um3 (7.4-10.4); Platelet Count 177 10^3/ul (150-450)
[2017-11-01 06:34] LABS: INR 2.01 (0.77-1.02)
[2017-11-01] MEDS: Docusate CAP* 100 MG PO SCH ×2 (08:18→21:17)
[2017-11-01] MEDS: Magnesium Hydroxide LIQ* 30 ML UDC PO SCH ×2 (08:18→21:17)
--- NOTE | 2017-11-01 10:11 | PN ---
Progress Note - Progress Note Date of Service: 11/01/17 SOAP: Subjective: [Pt reports R knee pain controlled with po meds. Was just up walking and pain increased. Denies CP, SOB, nausea.] Objective: [A and O x 3, NAD R knee dressing changed. Surgical wound benign, no drainage or erythema. Calves soft, NT Distal gross motor and NV function intact Vital Signs: Temp Pulse Resp BP Pulse Ox 98.6 F 84 18 125/56 88 11/01/17 07:29 11/01/17 07:29 11/01/17 08:00 11/01/17 07:29 11/01/17 08:00 Laboratory Results - last 24 hr 11/01/17 11/01/17 06:12 06:12 Hgb 11.6 L Hct 34 L Plt Count 177 MPV 7.8 INR (Anticoag Therapy) 2.01 H ] Assessment: [s/p R TKA POD #2] Plan: [Pain management Con't PT/OT Lovenox and Warfarin 2 mg today]
[2017-11-01] MEDS: Enoxaparin(*) 30 MG/0.3 ML SYR SUBCUT SCH (12:15)
[2017-11-01] MEDS ORDERED: Warfarin TAB(*) 2 MG PO NR (17:00)
[2017-11-02 05:47] LABS: Hematocrit 34 % (35-47); Hemoglobin 11.4 g/dl (12.0-16.0); Mean Platelet Volume 7.7 um3 (7.4-10.4); Platelet Count 179 10^3/ul (150-450)
[2017-11-02] MEDS: Acetaminophen TAB* 325 MG PO SCH (05:57)
[2017-11-02 06:01] LABS: INR 2.74 (0.77-1.02)
[2017-11-02] MEDS: oxyCODONE TAB* 5 MG TAB PO PRN (07:23)
[2017-11-02] MEDS: Docusate CAP* 100 MG PO SCH (07:23)
[2017-11-02 07:38] VITALS: BP 134/67
--- NOTE | 2017-11-02 09:06 | PN ---
Progress Note - Progress Note Date of Service: 11/02/17 SOAP: Subjective: [Pt reports feeling "much better" than yesterday. Knee pain improving. Denies CP, SOB, Calf pain, Nausea.] Objective: [A and O x 3, NAD. Seated in chair working with PT. R knee dressing C/D/I Calves soft, NT Distal gross motor and NV status intact Vital Signs: Temp Pulse Resp BP Pulse Ox 98.1 F 87 18 134/67 95 11/02/17 07:22 11/02/17 07:22 11/02/17 07:23 11/02/17 07:22 11/02/17 07:22 Laboratory Results - last 24 hr 11/02/17 11/02/17 05:28 05:28 Hgb 11.4 L Hct 34 L Plt Count 179 MPV 7.7 INR (Anticoag Therapy) 2.74 H ] Assessment: [s/p R TKA POD # 3] Plan: [Con't PT/OT Pain management Hold Coumadin today PMRU consult has been placed]
--- NOTE | 2017-11-02 21:50 | DS ---
DISCHARGE SUMMARY: DATE OF ADMISSION: 10/30/17 DATE OF DISCHARGE: 11/02/17 PROVIDER: Lidya Porras MD ADMITTING PHYSICIAN: Dr. Porras.* (DICTATED BY FRANCES WILSON) ADMITTING DIAGNOSES: 1. Right knee osteoarthritis. 2. Breast cancer. DISCHARGE DIAGNOSES: 1. Status post right total knee arthroplasty. 2. Breast cancer. PROCEDURE: Right total knee arthroplasty. CONSULTANTS: 1. Physical Therapy. 2. Occupational Therapy. BRIEF HISTORY: Ms. Sandhu is an 86-year-old female with severe degenerative osteoarthritis of her right knee. She failed conservative treatment measures and elected to undergo a right total knee arthroplasty on 10/30/[address] Porras. HOSPITAL COURSE: Ms. Sandhu was admitted to [facility] on 10/30/17. She underwent an uncomplicated right total knee arthroplasty. Postoperatively, she recovered on the short stay surgical unit. Her catheter was removed on postoperative day #1 and she was able to urinate on her own. She advanced to a regular diet without difficulty. Her pain was well controlled with Percocet. Vital signs and labs remained stable and she was able to bear weight as tolerated on the right lower extremity. She advanced appropriately with physical therapy and occupational therapy. Her DVT prophylaxis was bridged with Lovenox and Coumadin until she reached therapeutic INR range. By postoperative day #3, she was orthopedically and medically stable to be discharged to [facility] for subacute rehab. PHYSICAL EXAMINATION: General: The patient is noted to be calm and cooperative. She is in no acute distress. She is alert and oriented x3. Vital Signs: On the day of discharge, temperature 98.1 degrees Fahrenheit, pulse rate 87, respiratory rate 16, O2 sat 95% on room air, blood pressure 134/67. Extremities: Examination of the right lower extremity demonstrates a dressing overlying the right knee which is clean, dry, and intact. Calf is soft and nontender. Distally, she had + 2 palpable DP pulse, 5/5 ankle dorsiflexion, plantarflexion, and strength. Sensation is intact to light touch. LABORATORY DATA AND RADIOLOGICAL STUDIES: On the day of discharge, hemoglobin 11.4, hematocrit 34. INR 2.74. Postoperative radiographs of the right knee demonstrate a right total knee arthroplasty with satisfactory prosthesis placement and no acute bony abnormalities. DISCHARGE MEDICATIONS: 1. Percocet 5/325 mg 1 to 2 tabs p.o. q.4 to 6 hours p.r.n. pain. 2. Lovenox as directed. CONDITION ON DISCHARGE: Stable. DISCHARGE INSTRUCTIONS: Ms. Sandhu is an 86-year-old female, postoperative day # 3, status post right total knee arthroplasty which is uncomplicated. She is orthopedically and medically stable to be discharged to [facility] for acute rehab. She has stable vital signs and labs. She will hold Coumadin today, Friday, , and INR will be rechecked tomorrow and dosage adjusted. She will remain weightbearing as tolerated on the right lower extremity. She will use Percocet for pain control and Colace up to 3 times a day for constipation. She will follow up with Dr. Porras in approximately 2 weeks for an incision check and suture removal. She will contact the office with any questions. FRANCES WILSON [id number]/[facility] #: [id number] MTDJade
== END 2017-11-02 11:12 | DRG 470 ==
LOC: AA 06:51 → SSU 12:04
PROVIDERS: ADMIT Orthopaedic Surgery Adult Reconstructive Orthopaedic Surgery; ATTEND Orthopaedic Surgery Adult Reconstructive Orthopaedic Surgery
PROC: 0SRC0J9 Replacement of Right Knee Joint with Synthetic Substitute, Cemented, Open Approach (ICD-10-PCS; principal; 2017-10-30 09:00)
DX: M17.11 Unilateral primary osteoarthritis, right knee (principal); M25.761 Osteophyte, right knee; Z85.3 Personal history of malignant neoplasm of breast; Z82.49 Family history of ischemic heart disease and other diseases of the circulatory system
CPT/HCPCS: 36415; 71046; 80048; 85014; 85018; 85049; 85610; 88305; 88311; A9270-GY; C1776; G8978-GP-CK; G8978-GP-CL; G8978-GP-CM; G8979-GP-CI; G8979-GP-CJ; G8979-GP-CK; G8987-GO-CL; G8988-GO-CI; J0690; J1650; J2250; J2270; J2704; J2795; J3010

== ENCOUNTER 2017-11-02 11:13 | Inpatient (IN) | payer MEDICARE, BC ==
[2017-11-02] MEDS ORDERED: Magnesium Hydroxide LIQ* 30 ML UDC PO PRN (13:23)
[2017-11-02] MEDS: oxyCODONE/Acetamin 5/325 MG* TAB PO PRN ×2 (14:09→18:35)
[2017-11-02] MEDS ORDERED: Ondansetron ODT TAB* 4 MG PO PRN (14:11)
[2017-11-02] MEDS ORDERED: Al Hydrox/Mg Hydrox/Simet LIQ* 30 ML UDC PO PRN (14:12)
--- NOTE | 2017-11-02 20:04 | HP ---
ADMISSION HISTORY AND PHYSICAL: DATE OF ADMISSION: 11/02/17 REASON FOR ADMISSION: Right total knee replacement. HISTORY OF PRESENT ILLNESS: Madhuri Sandhu is an 86-year-old female. She has a history of breast cancer in her left breast. She has undergone a lumpectomy and a lymph node dissection on that side. The patient otherwise had little in the way of past medical history. She had ongoing difficulty with pain in her right knee. She saw Dr. Porras. She had tried and failed conservative treatment and it was decided to have a right total knee replacement. She was admitted to [facility] on 10/30/17. She underwent a right total knee replacement that day. Postoperatively, her course was benign. She was started on Coumadin for DVT prophylaxis. She did have some trouble with pain control. She was felt to have physical therapy and occupational therapy needs. She is now being admitted for inpatient rehab so that she might return to independent living. PAST MEDICAL HISTORY: Significant for the aforementioned breast cancer in 2008. MEDICATIONS: Current medications include: 1. Percocet for pain control. 2. She is on Coumadin for DVT prophylaxis and bowel medications. ALLERGIES: No known drug allergies. SOCIAL HISTORY: She is a nonsmoker, nondrinker. She lives by herself in a trailer with 3 steps to enter. She has 2 daughters who live in the area. REVIEW OF SYSTEMS: The patient reports no current shortness of breath or chest pain. PHYSICAL EXAMINATION VITAL SIGNS: The patient's temperature is 98.4, blood pressure is 129/66, pulse 87, and respirations 24. HEENT: Her extraocular movements are intact. Tongue is midline. NECK: Supple with no lymphadenopathy. LUNGS: Lung sound clear to auscultation bilaterally. HEART: Sounds are regular. S1 and S2 are audible. ABDOMEN: Soft and nontender. EXTREMITIES: Her right knee has a wound which is clean and dry. Peripheral pulses are intact. No edema is noted. NEUROLOGIC: The patient is awake, alert, oriented. Muscle strength 5/5 except her right knee, which is about 3/5 secondary to pain. Her functional exam, the patient transfers with contact guard. ASSESSMENT: Right total knee replacement. PLAN/RECOMMENDATIONS: Integrate her into a comprehensive and therapeutic rehab program with the following goals: 1. Physical Therapy will work with the patient. They are going to work on functional transfer training and ambulation training with a walker. 2. Occupational Therapy will see the patient, work on her activities of daily living including toileting and toilet transfers. 3. Coumadin for DVT prophylaxis. Her Coumadin is on hold tonight because her INR was 2.7 this morning. 4. Adequate analgesia. 5. Her bowels will be regulated. 6. For nausea, we will try Zofran. 7. social services technician will be closely involved to make sure that any services and equipment the patient requires are in place prior to discharge. 8. Family training as appropriate. 9. Home with appropriate services. ESTIMATED LENGTH OF STAY: Five to seven days. [id number]/[facility] #: [id number] EFFIE
[2017-11-02] MEDS: Acetaminophen TAB* 325 MG PO PRN (21:36)
[2017-11-02] MEDS: Docusate CAP* 100 MG PO SCH (21:36)
[2017-11-02] MEDS: Senna TAB PO SCH (21:37)
[2017-11-03] MEDS: oxyCODONE/Acetamin 5/325 MG* TAB PO PRN ×4 (01:34→23:50)
[2017-11-03 04:50] LABS: ABS Basophils 0.1 10^3/ul (0-0.2); ABS Eosinophils 0.3 10^3/ul (0-0.6); ABS Lymphocytes 1.3 10^3/ul (1.0-4.8); ABS Monocytes 0.6 10^3/ul (0-0.8); ABS Neutrophils 4.9 10^3/ul (1.5-7.7); ABS Nucleated RBC 0 10^3/ul; Eosinophil % 4.3 % (0-6); Hematocrit 33 % (35-47); Hemoglobin 10.9 g/dl (12.0-16.0); Lymphocyte % 17.8 % (25-47); Mean Corpuscular HGB Conc 33 g/dl (31-36); Mean Corpuscular Hemoglobin 29 pg (27-31); Mean Corpuscular Volume 86 fL (80-97); Mean Platelet Volume 7.7 um3 (7.4-10.4); Nucleated Red Blood Cells % 0; Platelet Count 203 10^3/ul (150-450); Red Cell Distribution Width 15 % (10.5-15); White Blood Count 7.1 10^3/ul (3.5-10.8)
[2017-11-03 05:05] LABS: EGFR Non-African American 74.6 (>60)
[2017-11-03 05:25] LABS: INR 2.18 (0.77-1.02)
[2017-11-03] MEDS: Acetaminophen TAB* 325 MG PO PRN (07:58)
[2017-11-03] MEDS: Docusate CAP* 100 MG PO SCH ×2 (07:58→19:40)
--- NOTE | 2017-11-03 16:59 | PN ---
Progress Note Date of Service: 11/03/17 Note: STEFANO RICE was visited. Therapy notes read and reviewed. She has a fair amount of pain in her right knee. She was able to have a bowel movement. Her dyspepsia is better. INR has fallen, will resume Coumadin Current Medications: Active Medications Generic Name Dose Route Start Last Admin Trade Name Freq PRN Reason Stop Dose Admin Acetaminophen 650 mg 11/02/17 13:23 11/03/17 07:58 Tylenol Tab* PO 650 mg Q6H PRN Administration FEVER/PAIN Al Hydrox/Mg Hydrox/Simethicone 30 ml 11/02/17 14:12 Maalox Plus* PO Q6H PRN DYSPEPSIA Docusate Sodium 100 mg 11/02/17 21:00 11/03/17 07:58 Colace Cap* PO 100 mg BID MICAELA Administration Magnesium Hydroxide 30 ml 11/02/17 13:23 Milk Of Magnesia Liq* PO Q6H PRN CONSTIPATION Ondansetron HCl 4 mg 11/02/17 14:11 Zofran Odt Tab* PO Q6H PRN NAUSEA Oxycodone/Acetaminophen 2 tab 11/02/17 13:29 11/03/17 09:46 Percocet 5/325 Tab* PO 2 tab Q4H PRN Administration PAIN - SEVERE Oxycodone/Acetaminophen 1 tab 11/02/17 13:32 11/02/17 14:09 Percocet 5/325 Tab* PO 1 tab Q4H PRN Administration PAIN - MODERATE TO SEVERE Senna 2 tab 11/02/17 21:00 11/02/17 21:37 Senokot Tab* PO 2 tab BEDTIME MICAELA Administration Warfarin Sodium 2 mg 11/03/17 17:00 Coumadin Tab(*) PO DAILY@1700 [facility] Protocol Vital Signs: Vital Signs Temp Pulse Resp BP Pulse Ox 98.0 F 80 16 141/74 99 11/03/17 15:42 11/03/17 15:42 11/03/17 15:42 11/03/17 15:42 11/03/17 15:42 Lab Results: Laboratory Results - last 24 hr 11/03/17 11/03/17 11/03/17 04:43 04:43 04:43 WBC 7.1 RBC 3.80 L Hgb 10.9 L Hct 33 L MCV 86 MCH 29 MCHC 33 RDW 15 Plt Count 203 MPV 7.7 Neut % (Auto) 68.4 Lymph % (Auto) 17.8 L [place] % (Auto) 8.8 H Eos % (Auto) 4.3 Baso % (Auto) 0.7 Absolute Neuts (auto) 4.9 Absolute Lymphs (auto) 1.3 Absolute Monos (auto) 0.6 Absolute Eos (auto) 0.3 Absolute Basos (auto) 0.1 Absolute Nucleated RBC 0 Nucleated RBC % 0 INR (Anticoag Therapy) 2.18 H Sodium 134 L Potassium 4.3 Chloride 103 Carbon Dioxide 29 Anion Gap 2 BUN 15 Creatinine 0.74 Est GFR ( Amer) 90.3 Est GFR (Non-Af Amer) 74.6 BUN/Creatinine Ratio 20.3 H Glucose 96 Calcium 8.8 Total Bilirubin 0.60 AST 21 ALT 13 Alkaline Phosphatase 131 H Total Protein 5.4 L Albumin 3.0 L Globulin 2.4 Albumin/Globulin Ratio 1.3 Exam: GENERAL: No distress. Alert, oriented LUNGS: Clear HEART: Reg rhythm ABDOMEN: Soft, +BS EXTREMITIES: Right knee wound C/D/I. NEUROLOGIC: Alert. Motor exam non-focal Assessment/Plan: 1. Right TKA: WBAT. PT/OT. Follow up with Dr. Porras 2. DVT Prophylaxis: Coumadin 3. Dyspepsia: Zofran PRN 4. Analgesia: Percocet/Tylenol 5. Advanced Directives: Full code 11/03/17 16:57 11/03/17 17:00
[2017-11-03] MEDS: Warfarin TAB(*) 2 MG PO SCH (18:01)
[2017-11-03] MEDS: Senna TAB PO SCH (19:40)
[2017-11-04 05:00] LABS: INR 1.74 (0.77-1.02)
[2017-11-04] MEDS: oxyCODONE/Acetamin 5/325 MG* TAB PO PRN ×3 (05:07→20:07)
[2017-11-04] MEDS: Docusate CAP* 100 MG PO SCH ×2 (08:50→20:07)
--- NOTE | 2017-11-04 12:34 | PMRUTEAM ---
PMRU: Team Meeting Current Status: Nursing: Current Status Skin Deviations [Right knee] Incision Skin Deviations [Mid low back] Previous Access Point Skin Deviations [Right hand Bruise and ac] Skin Deviation Description [ drsg, STEVE and cryounit in place Right knee] Skin Deviation Description [ epidural site Mid low back] Drain Type [Right knee] None Physical Therapy: Current Status Bed Mobility Assistance Supervision Transfer Moblility Assistance Supervision Transfer/Bed Mobility Rolling Walker Recommended Devices Transfer Mobility Comment Pt. is able to perform transfer wth 2 w/w S x 1. Ambulation Assistance Supervision Ambulation Assistive Devices Rolling Walker Number of Feet Patient 200' Ambulated Ambulation Comment Antalgic modified reciprocal type gait. Stairs Assistance Supervision Stairs Recommended Devices Two Rails Number of Stairs 5 Occupational Therapy: Current Status Upper Body Dressing Supervision Lower Body Dressing Min Assist Bathing Min Assist Toileting Contact Guard Assist Toilet Transfer Supervision Eating Independent Rec Therapy: Current Status Summary of Assessment and RT assessment complete and pt. is aware of RT Clinical Impression services. Pt. states her daughter will bring in leisure activities but is open to continued leisure visits. Treatment Goals Pt. will engage in leisure activities while on the unit. Treatment Plan Provide RT services and encourage involvement. Social Work: Current Status Discharge Plan return home with home care svs and family support Potential for Family Training pt's family are involved and supportive Anticipated Discharge Home Destination Discharge With home care svs and family support Nutrition: Current Status Monitoring new adm to [facility], although known from [facility]. PO intake now improved (from 10-60% to 50-100%); regular diet appropriate. She has had post-op BMs . Skin is intact w/low risk for breakdown. She was educated re: vit K and Coumadin interaction on 10/31 and has no further questions at this time. Initial goals as outlined below. Goals: Physical Therapy: Initial Goals Bed Mobility Assistance Independent Transfer Mobility Assistance Independent Transfer/Bed Mobility Rolling Walker Recommended Devices Ambulation Independent Ambulation Recommended Devices Rolling Walker Ambulation Distance 250 Stairs Assistance Independent Stair Recommended Devices One Rail Number of Stairs 3 Home Exercise Program Independent Assistance Physical Therapy: Updated Goals Bed Mobility Assistance Independent Transfer Mobility Assistance Independent Transfer/Bed Mobility Rolling Walker Recommended Devices Ambulation Assistance Independent Ambulation Assistive Devices Rolling Walker Ambulation Distance (ft) 250 Stairs Assistance Independent Stairs Recommended Devices One Rail Number of Stairs 5 Home Exercise Program Independent Assistance Occupational Therapy: Initial Goals Goals to be Completed in (Days 5 ) Upper Body Bathing Routine Independent Lower Body Bathing Routine Modified Independent with Upper Body Dressing Routine Independent Lower Body Dressing Routine Modified Independent with Toilet Hygeine and Clothing Modified Independent with Management Routine Toilet Transfer Routine Modified Independent with Step-In Shower Transfer Modified Independent with Routine Functional Transfers for ADL Modified Independent with Grooming Routine Independent Feeding Routine Independent Nutrition: Goals Intervention Goals 1. adequate po intake to support post-op healing and lean body mass without add'l wt gain 2. regulation of post-op bowel pattern; no c/o constipation (or diarrhea) 3. pt questions re: Coumadin/vit K education will be addressed prior to d/c as needed Social Work: Goals Discharge Plan return home with home care svs and family support Potential for Family Training pt's family are involved and supportive Anticipated Discharge Home Destination Discharge With home care svs and family support Care Plan: Care Plan ADL's - Improve/Maintain Start: 11/03/17 14:43 Freq: DAILY Status: Active Target: Protocol: Activity Type Activity Date Activity User E-Sign Co-Sign Detail Recorded Client Recorded Date Recorded By Document 11/03/17 14:43 [id number] 11/03/17 14:44 [id number] 11/03/17 14:43 PMRU Outcome: ADL's/ADL Transfers Orders/Interventions Occupational Therapy Evaluation & Treatment Communication Tool in Patient Room Device Yes Patient to receive OT 5x/wk for 60-120 Therex min/day Self Care Management Group Therapy Neuromuscular ReEducation UE/LE ADL's with Assist Yes: mod I ADL Transfers with Assist Yes: mod I Toileting: Transfers,Clothing Management Yes: mod I ,Hygeine w/Assist Light Kitchen/Laundry w/Assist Yes: mod I Progression Toward Outcome/Goals Progressing Mobility- Improve/Maintain Start: 11/03/17 14:11 Freq: DAILY Status: Active Target: Protocol: Activity Type Activity Date Activity User E-Sign Co-Sign Detail Recorded Client Recorded Date Recorded By Document 11/03/17 14:11 [id number] 11/03/17 14:12 [id number] 11/03/17 14:11 PMRU Outcome: Mobility Physical Therapy Evaluation and Yes Treatment Activity OOB with Assistance Yes WBAT Yes: RLE Device Yes: FWW Assistance Yes: CGA Patient to be seen 5x/wk for 60-120 min/ Therex day for: Mobility Training Gait Training Balance Outcome/Goals Maintain/ Achieve Baseline Mobility Status Improve Mobility Status Demonstrates Proper Use of Assistive Devices Free from Complications of Immobility Bed Mobility Yes: Ind Transfers Yes: Mod I with FWW Gait x ft Yes: Mod I with FWW x250' Up/Down Stairs Yes: Mod I one flight With HEP Yes Mobility-Improve/Maintain Start: 11/03/17 01:07 Freq: DAILY@0400,1600 Status: Active Target: Protocol: Activity Type Activity Date Activity User E-Sign Co-Sign Detail Recorded Client Recorded Date Recorded By Document 11/04/17 04:00 [id number] 11/04/17 04:26 [id number] 11/04/17 04:00 Outcome: Mobility Outcome/Goals Improve Mobility Status Demonstrates Proper Use of Assistive Devices Progression Toward Outcome/Goals Progressing Pain/Comfort-Improve/Maintain Start: 11/03/17 01:07 Freq: DAILY@0400,1600 Status: Active Target: Protocol: Activity Type Activity Date Activity User E-Sign Co-Sign Detail Recorded Client Recorded Date Recorded By Document 11/04/17 01:12 [id number] 11/04/17 01:12 [id number] 11/04/17 01:12 Outcome: Pain/Comfort Outcome/Goals Demonstrates Knowledge and Use of Available Comfort Measures Achieves Acceptable Comfort/Pain Level as Determined by Patient/Condit Progression Toward Outcome/Goals Progressing Medicine Note: Length of Stay: 3 days Anticipated Discharge Destination: Home Tentative Discharge Date: 11/07/17 Discharged to: Home
[2017-11-04] MEDS: Acetaminophen TAB* 325 MG PO PRN (14:05)
[2017-11-04] MEDS: Warfarin TAB(*) 2 MG PO SCH (17:00)
--- NOTE | 2017-11-04 18:30 | PN ---
Progress Note Date of Service: 11/04/17 Note: STEFANO RICE was visited. Therapy notes read and reviewed. She was discussed in interdisciplinary team rounds. Walking very well. INR down a bit Current Medications: Active Medications Generic Name Dose Route Start Last Admin Trade Name Freq PRN Reason Stop Dose Admin Acetaminophen 650 mg 11/02/17 13:23 11/04/17 14:05 Tylenol Tab* PO 650 mg Q6H PRN Administration FEVER/PAIN Al Hydrox/Mg Hydrox/Simethicone 30 ml 11/02/17 14:12 Maalox Plus* PO Q6H PRN DYSPEPSIA Docusate Sodium 100 mg 11/02/17 21:00 11/04/17 08:50 Colace Cap* PO 100 mg BID MICAELA Administration Magnesium Hydroxide 30 ml 11/02/17 13:23 Milk Of Magnesia Liq* PO Q6H PRN CONSTIPATION Ondansetron HCl 4 mg 11/02/17 14:11 Zofran Odt Tab* PO Q6H PRN NAUSEA Oxycodone/Acetaminophen 2 tab 11/02/17 13:29 11/04/17 10:56 Percocet 5/325 Tab* PO 2 tab Q4H PRN Administration PAIN - SEVERE Oxycodone/Acetaminophen 1 tab 11/02/17 13:32 11/02/17 14:09 Percocet 5/325 Tab* PO 1 tab Q4H PRN Administration PAIN - MODERATE TO SEVERE Senna 2 tab 11/02/17 21:00 11/03/17 19:40 Senokot Tab* PO 2 tab BEDTIME MICAELA Administration Warfarin Sodium 2 mg 11/03/17 17:00 11/04/17 17:00 Coumadin Tab(*) PO 2 mg DAILY@1700 MICAELA Administration Protocol Vital Signs: Vital Signs Temp Pulse Resp BP Pulse Ox 98.2 F 83 18 147/56 99 11/04/17 16:17 11/04/17 16:17 11/04/17 17:17 11/04/17 16:17 11/04/17 16:46 Lab Results: Laboratory Results - last 24 hr 11/04/17 04:45 INR (Anticoag Therapy) 1.74 H Exam: GENERAL: No distress. Alert, oriented LUNGS: Clear HEART: Reg rhythm ABDOMEN: Soft, +BS EXTREMITIES: Right knee wound C/D/I. NEUROLOGIC: Alert. Motor exam non-focal Assessment/Plan: 1. Right TKA: WBAT. PT/OT. Follow up with Dr. Porras 2. DVT Prophylaxis: Coumadin. Check INR in A.M. 3. Dyspepsia: Zofran PRN 4. Analgesia: Percocet/Tylenol 5. Advanced Directives: Full code 11/04/17 18:31
[2017-11-04] MEDS: Senna TAB PO SCH (20:07)
[2017-11-05] MEDS: Acetaminophen TAB* 325 MG PO PRN (02:52)
[2017-11-05 05:16] LABS: INR 1.63 (0.77-1.02)
[2017-11-05] MEDS: Docusate CAP* 100 MG PO SCH ×2 (08:25→19:55)
[2017-11-05] MEDS: oxyCODONE/Acetamin 5/325 MG* TAB PO PRN ×3 (08:25→19:58)
[2017-11-05] MEDS: Warfarin TAB(*) 3 MG PO SCH (16:45)
--- NOTE | 2017-11-05 19:03 | PN ---
Progress Note Date of Service: 11/05/17 Note: STEFANO RICE was visited. Therapy notes read and reviewed. She is doing well walking. Pain controlled. Otherwise feels ok. INR still falling. Will increase Coumadin to 3 mg Current Medications: Active Medications Generic Name Dose Route Start Last Admin Trade Name Freq PRN Reason Stop Dose Admin Acetaminophen 650 mg 11/02/17 13:23 11/05/17 02:52 Tylenol Tab* PO 650 mg Q6H PRN Administration FEVER/PAIN Al Hydrox/Mg Hydrox/Simethicone 30 ml 11/02/17 14:12 Maalox Plus* PO Q6H PRN DYSPEPSIA Docusate Sodium 100 mg 11/02/17 21:00 11/05/17 08:25 Colace Cap* PO 100 mg BID MICAELA Administration Magnesium Hydroxide 30 ml 11/02/17 13:23 Milk Of Magnesia Liq* PO Q6H PRN CONSTIPATION Ondansetron HCl 4 mg 11/02/17 14:11 Zofran Odt Tab* PO Q6H PRN NAUSEA Oxycodone/Acetaminophen 2 tab 11/02/17 13:29 11/05/17 12:50 Percocet 5/325 Tab* PO 2 tab Q4H PRN Administration PAIN - SEVERE Oxycodone/Acetaminophen 1 tab 11/02/17 13:32 11/02/17 14:09 Percocet 5/325 Tab* PO 1 tab Q4H PRN Administration PAIN - MODERATE TO SEVERE Senna 2 tab 11/02/17 21:00 11/04/17 20:07 Senokot Tab* PO 2 tab BEDTIME MICAELA Administration Warfarin Sodium 3 mg 11/05/17 17:00 11/05/17 16:45 Coumadin Tab(*) PO 3 mg DAILY@1700 MICAELA Administration Protocol Vital Signs: Vital Signs Temp Pulse Resp BP Pulse Ox 97.6 F 71 18 124/94 98 11/05/17 16:01 11/05/17 16:01 11/05/17 16:55 11/05/17 16:01 11/05/17 17:16 Lab Results: Laboratory Results - last 24 hr 11/05/17 04:34 INR (Anticoag Therapy) 1.63 H Exam: GENERAL: No distress. Alert, oriented LUNGS: Clear HEART: Reg rhythm ABDOMEN: Soft, +BS EXTREMITIES: Right knee wound C/D/I. NEUROLOGIC: Alert. Motor exam non-focal Assessment/Plan: 1. Right TKA: WBAT. PT/OT. Follow up with Dr. Porras 2. DVT Prophylaxis: Coumadin. Check INR Friday A.M. 3. Dyspepsia: Zofran PRN 4. Analgesia: Percocet/Tylenol 5. Advanced Directives: Full code 11/05/17 19:03
[2017-11-05] MEDS: Senna TAB PO SCH (19:55)
[2017-11-06] MEDS: oxyCODONE/Acetamin 5/325 MG* TAB PO PRN ×5 (00:27→20:08)
[2017-11-06] MEDS: Docusate CAP* 100 MG PO SCH ×2 (09:04→20:08)
[2017-11-06] MEDS: Warfarin TAB(*) 3 MG PO SCH (17:19)
--- NOTE | 2017-11-06 17:37 | PN ---
Progress Note Date of Service: 11/06/17 Note: STEFANO RICE was visited. Therapy notes read and reviewed. She is moving well and ready for discharge in the morning. Will check her INR in the am. Current Medications: Active Medications Generic Name Dose Route Start Last Admin Trade Name Freq PRN Reason Stop Dose Admin Acetaminophen 650 mg 11/02/17 13:23 11/05/17 02:52 Tylenol Tab* PO 650 mg Q6H PRN Administration FEVER/PAIN Al Hydrox/Mg Hydrox/Simethicone 30 ml 11/02/17 14:12 Maalox Plus* PO Q6H PRN DYSPEPSIA Docusate Sodium 100 mg 11/02/17 21:00 11/06/17 09:04 Colace Cap* PO 100 mg BID MICAELA Administration Magnesium Hydroxide 30 ml 11/02/17 13:23 Milk Of Magnesia Liq* PO Q6H PRN CONSTIPATION Ondansetron HCl 4 mg 11/02/17 14:11 Zofran Odt Tab* PO Q6H PRN NAUSEA Oxycodone/Acetaminophen 2 tab 11/02/17 13:29 11/05/17 12:50 Percocet 5/325 Tab* PO 2 tab Q4H PRN Administration PAIN - SEVERE Oxycodone/Acetaminophen 1 tab 11/02/17 13:32 11/06/17 13:01 Percocet 5/325 Tab* PO 1 tab Q4H PRN Administration PAIN - MODERATE TO SEVERE Senna 2 tab 11/02/17 21:00 11/05/17 19:55 Senokot Tab* PO 2 tab BEDTIME MICAELA Administration Warfarin Sodium 3 mg 11/05/17 17:00 11/06/17 17:19 Coumadin Tab(*) PO 3 mg DAILY@1700 MICAELA Administration Protocol Vital Signs: Vital Signs Temp Pulse Resp BP Pulse Ox 97.6 F 87 16 137/71 96 11/06/17 05:20 11/06/17 05:20 11/06/17 16:29 11/06/17 05:20 11/06/17 05:20 Exam: GENERAL: No distress. Alert, oriented LUNGS: Clear HEART: Reg rhythm ABDOMEN: Soft, +BS EXTREMITIES: Right knee wound C/D/I. NEUROLOGIC: Alert. Motor exam non-focal Assessment/Plan: 1. Right TKA: WBAT. PT/OT. Follow up with Dr. Porras 2. DVT Prophylaxis: Coumadin. Check INR Friday A.M. 3. Dyspepsia: Zofran PRN 4. Analgesia: Percocet/Tylenol 5. Advanced Directives: Full code 11/06/17 17:41
[2017-11-06] MEDS: Senna TAB PO SCH (20:07)
[2017-11-07] MEDS: oxyCODONE/Acetamin 5/325 MG* TAB PO PRN ×2 (02:02→08:32)
[2017-11-07 06:29] LABS: INR 1.69 (0.77-1.02)
[2017-11-07 06:36] VITALS: BP 129/64
[2017-11-07] MEDS: Docusate CAP* 100 MG PO SCH (08:31)
--- NOTE | 2017-11-07 10:46 | PN ---
Progress Note Date of Service: 11/07/17 Note: STEFANO RICE was visited. Nursing and therapy notes read and reviewed. No chest pain, shortness of breath or abdominal pain. Ready for discharge. Current Medications: Active Medications Generic Name Dose Route Start Last Admin Trade Name Freq PRN Reason Stop Dose Admin Acetaminophen 650 mg 11/02/17 13:23 11/05/17 02:52 Tylenol Tab* PO 650 mg Q6H PRN Administration FEVER/PAIN Al Hydrox/Mg Hydrox/Simethicone 30 ml 11/02/17 14:12 Maalox Plus* PO Q6H PRN DYSPEPSIA Docusate Sodium 100 mg 11/02/17 21:00 11/07/17 08:31 Colace Cap* PO 100 mg BID MICAELA Administration Magnesium Hydroxide 30 ml 11/02/17 13:23 Milk Of Magnesia Liq* PO Q6H PRN CONSTIPATION Ondansetron HCl 4 mg 11/02/17 14:11 Zofran Odt Tab* PO Q6H PRN NAUSEA Oxycodone/Acetaminophen 2 tab 11/02/17 13:29 11/07/17 02:02 Percocet 5/325 Tab* PO 2 tab Q4H PRN Administration PAIN - SEVERE Oxycodone/Acetaminophen 1 tab 11/02/17 13:32 11/07/17 08:32 Percocet 5/325 Tab* PO 1 tab Q4H PRN Administration PAIN - MODERATE TO SEVERE Senna 2 tab 11/02/17 21:00 11/06/17 20:07 Senokot Tab* PO 2 tab BEDTIME COUNTS INCLUDE 234 BEDS AT THE [facility] Administration Warfarin Sodium 4 mg 11/07/17 17:00 Coumadin Tab(*) PO DAILY@1700 COUNTS INCLUDE 234 BEDS AT THE [facility] Protocol Vital Signs: Vital Signs Temp Pulse Resp BP Pulse Ox 98.2 F 83 16 129/64 94 11/07/17 06:17 11/07/17 06:17 11/07/17 08:32 11/07/17 06:17 11/07/17 06:17 Lab Results: Laboratory Results - last 24 hr 11/07/17 06:08 INR (Anticoag Therapy) 1.69 H Exam: GENERAL: No distress. Alert and appropriate. LUNGS: Clear to auscultation bilaterally HEART: Regular rate and rhythm ABDOMEN: Soft, + bowel sounds, soft, non-tender EXTREMITIES: Right knee wound C/D/I. Assessment/Plan: 1. Right TKA: WBAT.Follow up with Dr. Porras 2. DVT Prophylaxis: Coumadin increase to 4mg daily and f/u INR Mon/ 3. Dyspepsia: Zofran PRN 4. Analgesia: Percocet/Tylenol 5. Advanced Directives: Full code 6. Dispo: discharge home today. 11/07/17 10:45
[2017-11-07] MEDS ORDERED: Warfarin TAB(*) 4 MG PO SCH (17:00)
--- NOTE | 2017-11-07 21:20 | DS ---
CC: Dr. Lackey REHABILITATION DISCHARGE: DATE OF ADMISSION: 11/02/17 DATE OF DISCHARGE: 11/07/17 REASON FOR ADMISSION: Right total knee replacement. ORTHOPEDIC SURGEON: Dr. Porras. PRIMARY CARE PROVIDER: Dr. Lackey. HISTORY OF PRESENT ILLNESS: For full details of her acute hospitalization leading up to her admission, please see the note dictated by Dr. Tilley on . REHABILITATION COURSE: During her time on the RU, she was restarted on Coumadin for DVT prophylaxis. It was held on her first day. Her INR is subtherapeutic at this time. Her Coumadin was increased to 4 mg per day starting today. She will have her INR rechecked on 11/10/17 with results going to Dr[address] Porras. She participated well with physical therapy. At the time of discharge, she is independent with bed mobility, transfers using a 2 -wheel walker, ambulation 250 feet using a 2- wheel walker and climbing 5 steps with one rail. She is independent with her home exercise program. She also participated well with occupational therapy and at the time of discharge, was independent with eating. For her first shower, it should be supervised using a tub transfer bench using a long-handled sponge. She can dress independently using a sock aid outsole compressor and her walker. She is independent toileting with the walker. She is independent with the walker for small tasks, for home management and cooking. She still has sutures in place and is to follow up with Dr. Porras next week to have sutures removed as appropriate. She did experience some nausea when she was on Zofran and it resolved and she does not need this medication at discharge. DISCHARGE CONDITION: Good. DISCHARGE MEDICATIONS: 1. Colace 100 mg b.i.d. 2. Percocet 5/325 1 to 2 tabs q. 4 hours p.r.n. moderate to severe pain, up to 3 to 5 per day. 3. Senna 2 tablets q.h.s. 4. Warfarin 4 mg q.p.m. FOLLOWUP: 1. She is to follow up with Dr. Porras in 4 to 7 days. 2. Follow up with Dr. Lackey within the next month. 3. Referral has been sent to visiting nurse services in [place] for ongoing [facility] physical therapy, home-health aide, and INR draws every Friday and with results going to Dr. Porras. DISCHARGE DIAGNOSES: 1. Right knee osteoarthritis, status post right total knee replacement. 2. History of breast cancer. 3. Nausea. DISCHARGE DISPOSITION: Home. [id number]/[facility] #: [id number] MTDD
== END 2017-11-07 11:00 | disposition home health service (06) | DRG 561 ==
LOC: PMRU 11:14
PROVIDERS: ADMIT Physical Medicine & Rehabilitation; ATTEND Physical Medicine & Rehabilitation
PROC: F07Z5ZZ Bed Mobility Treatment (ICD-10-PCS; principal; 2017-11-02)
PROC: F07Z9ZZ Gait Training/Functional Ambulation Treatment (ICD-10-PCS; 2017-11-02)
PROC: F07Z8ZZ Transfer Training Treatment (ICD-10-PCS; 2017-11-02)
PROC: F08Z0ZZ Bathing/Showering Techniques Treatment (ICD-10-PCS; 2017-11-02)
PROC: F08Z1ZZ Dressing Techniques Treatment (ICD-10-PCS; 2017-11-02)
PROC: F08Z3ZZ Feeding/Eating Treatment (ICD-10-PCS; 2017-11-02)
DX: Z47.1 Aftercare following joint replacement surgery (principal); Z96.651 Presence of right artificial knee joint; R10.13 Epigastric pain; Z85.3 Personal history of malignant neoplasm of breast
CPT/HCPCS: 36415; 80053; 85025; 85610; A9270-GY

== ENCOUNTER 2020-09-12 22:38 | Observation (INO) ==
[2020-09-13 00:58] LABS: ABS Monocytes 0.3 10^3/ul (0-0.8); ABS Neutrophils 5.4 10^3/ul (1.5-7.7); Eosinophil % 0.4 %; Hematocrit 40 % (35-47); Hemoglobin 13.3 g/dL (12.0-16.0); Lymphocyte % 14.4 %; Mean Corpuscular HGB Conc 34 g/dL (31-36); Mean Corpuscular Hemoglobin 29 pg (27-31); Mean Corpuscular Volume 85 fL (80-97); Mean Platelet Volume 7.7 fL (7.4-10.4); Platelet Count 244 10^3/uL (150-450); Red Blood Count 4.67 10^6 /uL (3.70-4.87); Red Cell Distribution Width 16 % (10-15); White Blood Count 6.8 10^3/uL (3.5-10.8)
[2020-09-13 01:10] LABS: ALT 13 U/L (7-52); AST 17 U/L (13-39); Albumin 3.8 g/dL (3.2-5.2); Albumin/Globulin Ratio 1.5 (1-3); Alkaline Phosphatase 94 U/L (35-149); Anion Gap 7 mmol/L (2-11); Blood Urea Nitrogen 18 mg/dL (6-24); CO2 Carbon Dioxide 25 mmol/L (22-32); Calcium 9.5 mg/dL (8.6-10.3); Chloride 104 mmol/L (101-111); EGFR African American 84.3 (>60); EGFR Non-African American 69.7 (>60); Globulin 2.5 g/dL (2-4); Glucose 109 mg/dL (70-100); Magnesium 2.1 mg/dL (1.9-2.7); Potassium 4.1 mmol/L (3.5-5.0); Sodium 136 mmol/L (135-145); Total Protein 6.3 g/dL (6.4-8.9)
[2020-09-13 01:24] LABS: TSH Ultra Thyroid Stim Horm 1.38 mcIU/mL (0.34-5.60)
[2020-09-13] MEDS ORDERED: Iodixanol (CONTRAST) 320 MG/ML 100 ML SDV IV ONE (01:35)
[2020-09-13 03:10] LABS: Cholesterol 262 mg/dL; HDL Cholesterol 60.7 mg/dL; LDL Cholesterol 188 mg/dL; Triglycerides 69 mg/dL
[2020-09-13] MEDS: Enoxaparin 40 MG/0.4 ML SYR SUBCUT SCH (04:42)
[2020-09-13 04:49] LABS: Urine Appearance Clear; Urine Bilirubin Negative (Negative); Urine Blood Negative (Negative); Urine Color Yellow; Urine Glucose Negative (Negative); Urine Ketones Negative (Negative); Urine Nitrite Negative (Negative); Urine Protein Negative (Negative); Urine Specific Gravity 1.055 (1.002-1.030); Urine Urobilinogen Negative (Negative)
[2020-09-13 04:58] LABS: Urine Bacteria Absent (Absent); Urine Red Blood Cell 1+(3-5/hpf) (Absent); Urine Squamous Epithelial Cell Present (Absent); Urine White Blood Cell Trace(0-5/hpf) (Absent)
[2020-09-13 05:15] LABS: Troponin I 0.29 ng/mL (<0.03)
[2020-09-13 08:28] LABS: Troponin I 0.39 ng/mL (<0.03)
[2020-09-13 11:24] LABS: INR 1.04 (0.86-1.15)
[2020-09-13] MEDS ORDERED: Perflutren Lipid Microsphere 3 ML VIAL ONE (11:54)
[2020-09-13 18:29] LABS: Troponin I 0.39 ng/mL (<0.03)
[2020-09-14 05:04] LABS: ABS Eosinophils 0.2 10^3/ul (0-0.6); ABS Lymphocytes 1.8 10^3/ul (1.0-4.8); ABS Monocytes 0.7 10^3/ul (0-0.8); ABS Neutrophils 4.7 10^3/ul (1.5-7.7); Eosinophil % 2.2 %; Hematocrit 42 % (35-47); Hemoglobin 13.6 g/dL (12.0-16.0); Lymphocyte % 24.1 %; Mean Corpuscular HGB Conc 33 g/dL (31-36); Mean Corpuscular Hemoglobin 28 pg (27-31); Mean Corpuscular Volume 86 fL (80-97); Mean Platelet Volume 7.6 fL (7.4-10.4); Platelet Count 253 10^3/uL (150-450); Red Blood Count 4.83 10^6 /uL (3.70-4.87); Red Cell Distribution Width 16 % (10-15); White Blood Count 7.4 10^3/uL (3.5-10.8)
[2020-09-14 05:21] LABS: Anion Gap 6 mmol/L (2-11); Blood Urea Nitrogen 14 mg/dL (6-24); CO2 Carbon Dioxide 26 mmol/L (22-32); Calcium 9.6 mg/dL (8.6-10.3); Chloride 105 mmol/L (101-111); EGFR African American 86.9 (>60); EGFR Non-African American 71.8 (>60); Glucose 95 mg/dL (70-100); Potassium 4.1 mmol/L (3.5-5.0); Sodium 137 mmol/L (135-145)
[2020-09-14] MEDS: Enoxaparin 40 MG/0.4 ML SYR SUBCUT SCH (08:08)
[2020-09-14] MEDS ORDERED: Regadenoson 0.4 MG/5 ML SYRINGE ONE (12:18)
[2020-09-14] MEDS ORDERED: Aminophylline 25 MG/ML VIAL ONE (12:18)
[2020-09-14 19:49] LABS: Troponin I 0.29 ng/mL (<0.03)
[2020-09-15 07:44] VITALS: BP 144/70
[2020-09-15 08:59] LABS: ABS Basophils 0.1 10^3/ul (0-0.2); ABS Eosinophils 0.2 10^3/ul (0-0.6); ABS Lymphocytes 1.5 10^3/ul (1.0-4.8); ABS Monocytes 0.6 10^3/ul (0-0.8); ABS Neutrophils 4.3 10^3/ul (1.5-7.7); Eosinophil % 3.4 %; Hematocrit 42 % (35-47); Hemoglobin 14.1 g/dL (12.0-16.0); Lymphocyte % 22.1 %; Mean Corpuscular HGB Conc 34 g/dL (31-36); Mean Corpuscular Hemoglobin 29 pg (27-31); Mean Corpuscular Volume 86 fL (80-97); Mean Platelet Volume 7.8 fL (7.4-10.4); Platelet Count 262 10^3/uL (150-450); Red Blood Count 4.87 10^6 /uL (3.70-4.87); Red Cell Distribution Width 16 % (10-15); White Blood Count 6.6 10^3/uL (3.5-10.8)
[2020-09-15 09:17] LABS: EGFR African American 79.6 (>60); EGFR Non-African American 65.8 (>60); Magnesium 1.9 mg/dL (1.9-2.7); Potassium 4.2 mmol/L (3.5-5.0)
[2020-09-15] MEDS: Enoxaparin 40 MG/0.4 ML SYR SUBCUT SCH (09:21)
== END 2020-09-15 09:30 | disposition home or self-care (01) ==
LOC: ED 22:38 → MEDTELE 22:38
PROVIDERS: ADMIT Internal Medicine; ATTEND Internal Medicine